=== PATIENT | female | born 1960 | race Hispanic/Latino ===

== ENCOUNTER 2019-05-03 17:09 | Inpatient (IN) | payer OTHER ==
--- NOTE | 2019-05-03 17:20 | Emergency Department Report ---
ED Chest Pain HPI - General Stated Complaint: STEMI Time Seen by Provider: 05/03/19 17:17 Source: patient, EMS - History of Present Illness Initial Comments: Patient is 58-year-old female with history of hypertension and diabetes. Patient brought to the emergency room from home for evaluation of chest pain. Patient stated that chest pain started 5 days ago. Patient described her pain as left sided pressure with radiation to the left arm. Patient stated the pain get worse today and asked why he went ahead and called 911. Patient described her pain as 9 out of 10 when EMS arrived. EMS gave a patient with nitroglycerin sublingual and then patient went into cardiac arrest, rhythm showed torsade de point and patient received a 200 J by EMS and is started on CPR for a brief seconds when patient started shouting. Upon arrival to the ER I reviewed the EKG which showed ST elevation in lead I but no other elevation in any other leads. Patient does have significant ST depression in inferior leads. Patient put on nuclear monitoring technician, given aspirin. MD Complaint: chest pain -: days(s) (5) Onset: during rest Pain Location: left chest Pain Radiation: none Severity: severe Severity scale (0 -10): 9 Quality: tightness, heaviness Consistency: intermittent - Related Data Home Medications Medication Instructions Recorded Confirmed Last Taken Diclofenac 1% [Diclofenac 1% 1 applic TP Q4H PRN 05/04/19 05/04/19 3 Weeks Ago topical gel] ~04/13/19 Levothyroxine [Synthroid] 125 mcg PO QAM 05/04/19 05/04/19 1 Week Ago ~04/27/19 Metformin HCl [metFORMIN] 1,000 mg PO BID 05/04/19 05/04/19 1 Day Ago ~05/03/19 Omeprazole 20 mg PO DAILY 05/04/19 05/04/19 1 Day Ago ~05/03/19 diphenhydrAMINE [Benadryl CAP] 50 mg PO QHS PRN 05/04/19 05/04/19 05/04/19 traZODone [Desyrel] 50 mg PO PRN 05/04/19 05/04/19 1 Month Ago ~04/03/19 Allergies Allergy/AdvReac Type Severity Reaction Status Date / Time No Known Allergies Allergy Unverified 05/03/19 17:31 Heart Score - HEART Score History: Highly suspicious EKG: Significant ST-depression Age: 45-65 Risk factors: 1-2 risk factors Troponin: < normal limit HEART Score: 6 - Critical Actions Critical Actions: 4-6 pts:12-16.6% risk of adverse cardiac event. Should be admitted ED Review of Systems ROS: Stated complaint: STEMI Other details as noted in HPI Comment: All other systems reviewed and negative Constitutional: denies: chills, fever Respiratory: denies: cough, shortness of breath, SOB with exertion Cardiovascular: chest pain Gastrointestinal: denies: abdominal pain, nausea, vomiting, diarrhea, constipation, hematemesis, melena, hematochezia Musculoskeletal: denies: back pain Neurological: denies: headache, weakness, numbness, paresthesias, confusion, abnormal gait ED Past Medical Hx - Medications Home Medications: Home Medications Medication Instructions Recorded Confirmed Last Taken Type Diclofenac 1% [Diclofenac 1% 1 applic TP Q4H PRN 05/04/19 05/04/19 3 Weeks Ago History topical gel] ~04/13/19 Levothyroxine [Synthroid] 125 mcg PO QAM 05/04/19 05/04/19 1 Week Ago History ~04/27/19 Metformin HCl [metFORMIN] 1,000 mg PO BID 05/04/19 05/04/19 1 Day Ago History ~05/03/19 Omeprazole 20 mg PO DAILY 05/04/19 05/04/19 1 Day Ago History ~05/03/19 diphenhydrAMINE [Benadryl CAP] 50 mg PO QHS PRN 05/04/19 05/04/19 05/04/19 History traZODone [Desyrel] 50 mg PO PRN 05/04/19 05/04/19 1 Month Ago History ~04/03/19 ED Physical Exam - General General appearance: alert, in no apparent distress - Head Head exam: Present: atraumatic, normal inspection - Eye Eye exam: Present: normal appearance - ENT ENT exam: Present: normal exam, normal orophraynx, mucous membranes moist - Neck Neck exam: Present: normal inspection, full ROM. Absent: tenderness, meni ngismus, lymphadenopathy, thyromegaly - Respiratory Respiratory exam: Present: normal lung sounds bilaterally - Cardiovascular Cardiovascular Exam: Present: regular rate, normal rhythm, normal heart sounds - GI/Abdominal GI/Abdominal exam: Present: soft, normal bowel sounds. Absent: distended, tenderness, guarding, rebound, rigid, organomegaly, mass, bruit, pulsatile mass, hernia - Extremities Exam Extremities exam: Present: normal inspection, full ROM, normal capillary refill. Absent: pedal edema, calf tenderness - Back Exam Back exam: Present: normal inspection, full ROM. Absent: CVA tenderness (R), CVA tenderness (L), muscle spasm, paraspinal tenderness, vertebral tenderness - Neurological Exam Neurological exam: Present: alert, oriented X3, CN II-XII intact - Skin Skin exam: Present: warm, intact, normal color ED Course Vital Signs 05/03/19 05/03/19 05/03/19 17:20 17:45 20:08 Temperature Pulse Rate 88 87 72 Respiratory 18 18 11 L Rate Respiratory Rate [Chest] Blood Pressure 178/88 Blood Pressure 169/80 [Left] O2 Sat by Pulse 95 92 Oximetry 05/03/19 05/03/19 05/03/19 20:10 20:15 20:20 Temperature 97.5 F L Pulse Rate 74 74 79 Respiratory 17 12 8 L Rate Respiratory Rate [Chest] Blood Pressure 175/113 175/113 Blood Pressure [Left] O2 Sat by Pulse 98 98 97 Oximetry 05/03/19 05/03/19 05/03/19 20:22 20:30 20:40 Temperature 97.7 F Pulse Rate 80 84 Respiratory 11 L 14 Rate Respiratory Rate [Chest] Blood Pressure 175/101 175/101 Blood Pressure [Left] O2 Sat by Pulse 95 95 Oximetry 05/03/19 05/03/19 05/03/19 20:50 21:00 21:10 Temperature Pulse Rate 80 84 87 Respiratory 14 14 14 Rate Respiratory Rate [Chest] Blood Pressure 170/98 166/99 166/99 Blood Pressure [Left] O2 Sat by Pulse 93 92 95 Oximetry 05/03/19 05/03/19 05/03/19 21:20 21:30 21:40 Temperature Pulse Rate 89 88 89 Respiratory 13 19 17 Rate Respiratory Rate [Chest] Blood Pressure 150/90 140/88 140/88 Blood Pressure [Left] O2 Sat by Pulse 94 90 95 Oximetry 05/03/19 05/03/19 05/03/19 21:50 22:00 22:10 Temperature Pulse Rate 92 H 85 96 H Respiratory 18 17 18 Rate Respiratory Rate [Chest] Blood Pressure 154/88 141/88 141/88 Blood Pressure [Left] O2 Sat by Pulse 93 90 93 Oximetry 05/03/19 05/03/19 05/03/19 22:19 22:20 22:25 Temperature Pulse Rate 92 H 93 H Respiratory 16 18 Rate Respiratory Rate [Chest] Blood Pressure 147/86 147/86 Blood Pressure [Left] O2 Sat by Pulse 95 Oximetry 05/03/19 05/03/19 05/03/19 22:30 22:39 22:40 Temperature Pulse Rate 93 H 89 Respiratory 15 17 Rate Respiratory 17 Rate [Chest] Blood Pressure 159/91 159/91 Blood Pressure [Left] O2 Sat by Pulse 92 93 Oximetry 05/03/19 05/03/19 05/03/19 22:50 22:57 23:00 Temperature Pulse Rate 88 82 Respiratory 16 17 17 Rate Respiratory Rate [Chest] Blood Pressure 135/84 136/83 Blood Pressure [Left] O2 Sat by Pulse 93 93 91 Oximetry 05/03/19 05/03/19 05/03/19 23:08 23:10 23:20 Temperature Pulse Rate 83 85 89 Respiratory 19 15 19 Rate Respiratory Rate [Chest] Blood Pressure 136/83 136/83 139/86 Blood Pressure [Left] O2 Sat by Pulse 91 94 95 Oximetry 05/03/19 05/03/19 05/03/19 23:30 23:40 23:50 Temperature Pulse Rate 84 81 79 Respiratory 16 15 16 Rate Respiratory Rate [Chest] Blood Pressure 132/86 132/86 139/85 Blood Pressure [Left] O2 Sat by Pulse 89 93 94 Oximetry 05/04/19 05/04/19 05/04/19 00:00 00:10 00:20 Temperature 97.6 F Pulse Rate 77 72 71 Respiratory 14 17 17 Rate Respiratory Rate [Chest] Blood Pressure 148/87 148/87 151/87 Blood Pressure [Left] O2 Sat by Pulse 93 96 95 Oximetry 05/04/19 05/04/19 05/04/19 00:30 00:40 00:50 Temperature Pulse Rate 75 73 69 Respiratory 21 16 17 Rate Respiratory Rate [Chest] Blood Pressure 152/76 152/76 152/76 Blood Pressure [Left] O2 Sat by Pulse 89 97 96 Oximetry 05/04/19 05/04/19 05/04/19 01:00 01:10 01:20 Temperature Pulse Rate 68 68 68 Respiratory 15 16 17 Rate Respiratory Rate [Chest] Blood Pressure 156/97 156/97 156/97 Blood Pressure [Left] O2 Sat by Pulse 94 95 96 Oximetry 05/04/19 05/04/19 05/04/19 01:30 01:40 01:41 Temperature Pulse Rate 68 69 77 Respiratory 17 14 Rate Respiratory Rate [Chest] Blood Pressure 159/90 159/90 Blood Pressure [Left] O2 Sat by Pulse 94 95 Oximetry 05/04/19 05/04/19 05/04/19 01:50 02:00 02:10 Temperature Pulse Rate 67 66 69 Respiratory 15 16 18 Rate Respiratory Rate [Chest] Blood Pressure 159/90 151/92 151/92 Blood Pressure [Left] O2 Sat by Pulse 95 95 95 Oximetry 05/04/19 05/04/19 05/04/19 02:20 02:30 02:40 Temperature Pulse Rate 70 70 69 Respiratory 18 18 19 Rate Respiratory Rate [Chest] Blood Pressure 151/92 154/87 154/87 Blood Pressure [Left] O2 Sat by Pulse 95 94 96 Oximetry 05/04/19 05/04/19 05/04/19 02:50 03:00 03:10 Temperature Pulse Rate 69 64 68 Respiratory 15 16 14 Rate Respiratory Rate [Chest] Blood Pressure 154/87 160/87 160/87 Blood Pressure [Left] O2 Sat by Pulse 96 96 97 Oximetry 05/04/19 05/04/19 05/04/19 03:20 03:30 03:40 Temperature Pulse Rate 88 78 64 Respiratory 12 19 16 Rate Respiratory Rate [Chest] Blood Pressure 160/87 147/80 147/80 Blood Pressure [Left] O2 Sat by Pulse 97 88 94 Oximetry 05/04/19 05/04/19 05/04/19 03:49 03:50 04:00 Temperature 98.1 F Pulse Rate 63 63 Respiratory 15 15 Rate Respiratory Rate [Chest] Blood Pressure 147/80 149/78 Blood Pressure [Left] O2 Sat by Pulse 95 94 Oximetry 05/04/19 05/04/19 05/04/19 04:10 04:20 04:30 Temperature Pulse Rate 63 65 71 Respiratory 15 16 17 Rate Respiratory Rate [Chest] Blood Pressure 149/78 149/78 164/84 Blood Pressure [Left] O2 Sat by Pulse 95 95 94 Oximetry 02/24/20 02/24/20 02/24/20 04:40 04:50 05:00 Temperature Pulse Rate 74 66 70 Respiratory 20 16 21 Rate Respiratory Rate [Chest] Blood Pressure 164/84 164/84 162/100 Blood Pressure [Left] O2 Sat by Pulse 96 96 95 Oximetry 05/04/19 05/04/19 05/04/19 05:10 05:20 05:30 Temperature Pulse Rate 77 66 66 Respiratory 16 15 18 Rate Respiratory Rate [Chest] Blood Pressure 162/100 162/100 158/80 Blood Pressure [Left] O2 Sat by Pulse 97 95 92 Oximetry 05/04/19 05/04/19 05/04/19 05:40 05:50 06:00 Temperature Pulse Rate 71 66 67 Respiratory 17 21 20 Rate Respiratory Rate [Chest] Blood Pressure 158/80 158/80 161/81 Blood Pressure [Left] O2 Sat by Pulse 94 95 92 Oximetry 05/04/19 05/04/19 06:10 06:20 Temperature Pulse Rate 70 73 Respiratory 20 9 L Rate Respiratory Rate [Chest] Blood Pressure 161/81 161/81 Blood Pressure [Left] O2 Sat by Pulse 95 95 Oximetry - Reevaluation(s) Reevaluation #1: 05/03/19 17:34 EKG in the ER showed STEMI. STEMI protocol activated. I discussed the patient with Dr. Hsu, he stated that he is on his way to the cardiac cath. He advised to start patient on heparin and nitroglycerin drip. ED Medical Decision Making - Lab Data Result diagrams: 05/04/19 04:27 05/04/19 04:27 - EKG Data -: EKG Interpreted by Me EKG shows normal: sinus rhythm - EKG Data 05/03/19 17:50 STEMI Critical Care Time: Yes Critical care time in (mins) excluding proc time.: 30 Critical care attestation.: If time is entered above; I have spent that time in minutes in the direct care of this critically ill patient, excluding procedure time. ED Disposition Clinical Impression: STEMI (ST elevation myocardial infarction) Disposition: -09 OP ADMIT IP TO THIS HOSP Is pt being admited?: Yes Condition: Stable
[2019-05-03] MEDS ORDERED: ONDANSETRON 4 MG/2 ML INJ ONE ×2 (17:29→19:44)
[2019-05-03] MEDS ORDERED: ONDANSETRON 4 MG/2 ML INJ IV ONE (17:31)
[2019-05-03] MEDS ORDERED: HEPARIN 10,000 UNITS/10 ML VIAL IV ONE (17:31)
[2019-05-03] MEDS: ASPIRIN 81 MG TAB CHEW PO ONE ×2 (17:33→17:43)
[2019-05-03 17:37] LABS: Basophils # (Auto) 0.1 K/mm3 (0.0-0.1); Basophils % (Auto) 0.9 % (0.0-1.8); Eosinophils # (Auto) 0.3 K/mm3 (0.0-0.4); Eosinophils % (Auto) 2.8 % (0.0-4.3); Hematocrit 51.3 % (30.3-42.9); Hemoglobin 17.3 gm/dl (10.1-14.3); Lymphocytes # (Auto) 4.3 K/mm3 (1.2-5.4); Lymphocytes % (Auto) 37.7 % (13.4-35.0); Mean Corpuscular HGB Conc 34 % (30-34); Mean Corpuscular Volume 94 fl (79-97); Monocytes # (Auto) 0.7 K/mm3 (0.0-0.8); Monocytes % (Auto) 6.5 % (0.0-7.3); Platelet Count 241 K/mm3 (140-440); Red Blood Count 5.48 M/mm3 (3.65-5.03); Red Cell Distribution Width 14.4 % (13.2-15.2)
[2019-05-03] MEDS: NITROGLYCERIN DRIP 50 MG/250 ML BOTTLE IV SCH ×2 (17:43→18:31)
[2019-05-03] MEDS: HEPARIN/ 0.45% NACL DRIP 25,000 UNIT/500 ML BAG IV SCH (17:48)
[2019-05-03 17:51] LABS: INR 0.92 (0.87-1.13)
[2019-05-03 17:52] LABS: Partial Thromboplastin Time 26.4 Sec. (24.2-36.6)
[2019-05-03 17:58] LABS: BUN/Creatinine Ratio 10; Blood Urea Nitrogen 6 mg/dL (7-17); Hemolysis Index 6
[2019-05-03 18:00] LABS: Alanine Aminotransferase 31 units/L (7-56); Albumin 4.4 g/dL (3.9-5); Bilirubin,Direct < 0.2 mg/dL (0-0.2)
[2019-05-03] MEDS ORDERED: HEPARIN/NS 5000 UNIT/500ML 1,000 ML IR ONE (18:03)
[2019-05-03] MEDS ORDERED: fentaNYL 100 MCG/2 ML INJ ONE (18:04)
[2019-05-03] MEDS ORDERED: MIDAZOLAM 2 MG/2 ML INJ ONE (18:04)
[2019-05-03] MEDS ORDERED: LIDOCAINE (2%) 20 MG/1 ML VIAL 20 ML MDV INFILTRATI ONE (18:04)
[2019-05-03] MEDS ORDERED: NITROGLYCERIN SYRINGE 0 ML ONE (18:04)
[2019-05-03] MEDS ORDERED: VERAPAMIL 5 MG/2 ML INJ ONE (18:04)
[2019-05-03] MEDS ORDERED: SODIUM CHLORIDE 0.9% 500 ML 500 ML ONE (18:05)
--- NOTE | 2019-05-03 18:12 | XRay Report ---
CHEST 1 VIEW INDICATION: Chest Pain. COMPARISON: none FINDINGS: SUPPORT DEVICES: None. HEART / MEDIASTINUM: No significant abnormality. LUNGS / PLEURA: No significant pulmonary or pleural abnormality. No pneumothorax. ADDITIONAL FINDINGS: IMPRESSION: 1. No acute cardiopulmonary disease Signer Name: Bayron Peterson MD Signed: 05/03/2019 6:08 PM Workstation Name: [id number]
[2019-05-03] MEDS: HEPARIN 10,000 UNITS/10 ML VIAL ONE ×3 (18:26→19:55)
[2019-05-03] MEDS ORDERED: HEPARIN/NS 5000 UNIT/500ML 500 ML IR ONE (18:36)
[2019-05-03] MEDS ORDERED: oxyCODONE /ACETAMINOPHEN 5-325MG TAB PO PRN (19:05)
[2019-05-03] MEDS ORDERED: ACETAMINOPHEN 325 MG TAB PO PRN (19:05)
[2019-05-03] MEDS ORDERED: MORPHINE 4 MG/1 ML INJ IV PRN (19:05)
[2019-05-03] MEDS: ONDANSETRON 4 MG/2 ML INJ IV PRN ×2 (19:08→22:51)
[2019-05-03] MEDS ORDERED: SODIUM CHLORIDE 0.9% 1000 ML 1,000 ML IV SCH (19:15)
[2019-05-03] MEDS ORDERED: TICAGRELOR 90 MG TAB ONE (19:31)
[2019-05-03] MEDS: ALUM-MAG HYDROXIDE-SIMETHICONE 200-200-20MG/5ML ORAL LIQD 30 ML ONE ×2 (19:50→19:55)
[2019-05-03] MEDS ORDERED: HEPARIN 10,000 UNITS/10 ML VIAL ONE (19:55)
[2019-05-03] MEDS ORDERED: HYDROcodone/ACETAMINOPHEN 5-325 MG TAB PO PRN (19:58)
[2019-05-03] MEDS ORDERED: ONDANSETRON 4 MG/2 ML INJ IV PRN (19:58)
[2019-05-03] MEDS ORDERED: HYDROmorphone 1 MG/1 ML INJ IV PRN (19:58)
--- NOTE | 2019-05-03 20:10 | History and Physical Report ---
<JONATHAN KUNZ - Last Filed: 05/03/19 22:14> History of Present Illness Date of examination: 05/03/19 Date of admission: 05/03/19 19:05 Chief complaint: Chest pain History of present illness: Patient is a 58-year-old female with history of diabetes, hypertension GERD and hypothyroidism who presents to ER with complaints for of dizziness, nausea and chest pain x 5 days. Patient states that her left chest pain pain is 8/10, intermittent initially but became become constant, sharp, crushing in nature, worsened with exertion, radiated to the right chest today and was accompanied by dizziness, nausea and sweats. EMS notified and upon arrival the patient was found to be in distress, given sublingual nitroglycerin . Report stated that patient went into cardiac arrest, with a rhythm showing torsade de point and received a 200 J by EMS and CPR initaiated in field until patient started shouting. On arrival, EKG changes consistent with STEMI. A code STEMI was called, Cardiology cath team activated and cardiology team consulted in ED. Patient admitted to ICU for medical stabilization due to high risk for cardiac decompensation. Patient taken urgently to [facility] for intervention as per cardiology team. Past History Past Medical History: other (as noted in HPI) Past Surgical History: hysterectomy Social history: smoking (x19 years ) Family history: CAD, diabetes, hypertension Medications and Allergies Allergies Allergy/AdvReac Type Severity Reaction Status Date / Time No Known Allergies Allergy Unverified 05/03/19 17:31 Active Meds: Active Medications Acetaminophen (Tylenol) 650 mg PO Q4H PRN PRN Reason: Pain MILD(1-3)/Fever >100.5/HANNON Famotidine (Pepcid) 20 mg IV BID [facility]UEL Heparin Sodium/Sodium Chloride (Heparin/ 0.45% Nacl-25,000 Unit/500 Ml) 25,000 unit in 500 mls @ 20 mls/hr IV TITRATE MANUEL; Protocol Last Admin: 05/03/19 17:48 Dose: 1,000 units/hr, 20 mls/hr Documented by: Nitroglycerin/Dextrose (Tridil Drip 50mg/250ml) 50 mg in 250 mls @ 3 mls/hr IV TITR MANUEL; Protocol Last Admin: 05/03/19 18:31 Dose: 10 mcg/min, 3 mls/hr Documented by: Sodium Chloride (Nacl 0.9% 1000 Ml) 1,000 mls @ 42 mls/hr IV DIRECT [facility] Morphine Sulfate (Morphine) 4 mg IV Q4H PRN PRN Reason: Pain , Severe (7-10) Ondansetron HCl (Zofran) 4 mg IV Q8H PRN PRN Reason: Nausea And Vomiting Last Admin: 05/03/19 19:08 Dose: 4 mg Documented by: Oxycodone/Acetaminophen (Percocet 5/325) 1 tab PO Q6H PRN PRN Reason: Pain, Moderate (4-6) Sodium Chloride (Sodium Chloride Flush Syringe 10 Ml) 10 ml IV BID MANUEL Sodium Chloride (Sodium Chloride Flush Syringe 10 Ml) 10 ml IV PRN PRN PRN Reason: LINE FLUSH Review of Systems All systems: negative Cardiovascular: chest pain Exam - Physical Exam Narrative exam: - Physical Exam Narrative exam: General appearance: Present: No distress noted - EENT Eyes: Present: PERRL ENT: hearing intact, clear oral mucosa - Neck Neck: Present: supple, normal ROM - Respiratory Respiratory effort: normal Respiratory: bilateral: Clear to auscultation - Cardiovascular Heart Sounds: Present: S1 & S2. Absent: rub, click - Extremities Extremities: pulses symmetrical, No edema Peripheral Pulses: within normal limits - Abdominal General gastrointestinal: Present: , non-distended, normal bowel sounds genitourinary: Present: normal - Integumentary Integumentary: Present: clear, warm, dry - Musculoskeletal Musculoskeletal: gait normal, strength equal bilaterally - Psychiatric Psychiatric: appropriate mood/affect, intact judgment & insight - Neurologic Neurologic: CNII-XII intact, moves all extremities - Constitutional Vitals: Temp Pulse Resp BP Pulse Ox 87 18 169/80 92 05/03/19 17:45 05/03/19 17:45 05/03/19 17:45 05/03/19 17:45 Results - Labs CBC & Chem 7: 05/03/19 17:23 05/03/19 17:23 Labs: Laboratory Last Values WBC 11.5 K/mm3 (4.5-11.0) H 05/03/19 17:23 RBC 5.48 M/mm3 (3.65-5.03) H 05/03/19 17:23 Hgb 17.3 gm/dl (10.1-14.3) H 05/03/19 17:23 Hct 51.3 % (30.3-42.9) H 05/03/19 17:23 MCV 94 fl (79-97) 05/03/19 17: MCH 32 pg (28-32) 05/03/19 17:23 MCHC 34 % (30-34) 05/03/19 17:23 RDW 14.4 % (13.2-15.2) 05/03/19 17: Plt Count 241 K/mm3 (140-440) 05/03/19 17:23 Lymph % (Auto) 37.7 % (13.4-35.0) H 05/03/19 17:23 Craig % (Auto) 6.5 % (0.0-7.3) 05/03/19 17: Eos % (Auto) 2.8 % (0.0-4.3) 05/03/19 17: Baso % (Auto) 0.9 % (0.0-1.8) 05/03/19 17: Lymph # 4.3 K/mm3 (1.2-5.4) 05/03/19 17: Craig # 0.7 K/mm3 (0.0-0.8) 05/03/19 17: Eos # 0.3 K/mm3 (0.0-0.4) 05/03/19 17: Baso # 0.1 K/mm3 (0.0-0.1) 05/03/19 17: Seg Neutrophils % 52.1 % (40.0-70.0) 05/03/19 17: Seg Neutrophils # 6.0 K/mm3 (1.8-7.7) 05/03/19 17:23 PT 12.5 Sec. (12.2-14.9) 05/03/19 17:23 INR 0.92 (0.87-1.13) 05/03/19 17:23 APTT 26.4 Sec. (24.2-36.6) 05/03/19 17:23 Sodium 131 mmol/L (137-145) L 05/03/19 17:23 Potassium 3.4 mmol/L (3.6-5.0) L 05/03/19 17: Chloride 91.4 mmol/L (98-107) L 05/03/19 17:23 Carbon Dioxide 17 mmol/L (22-30) L 05/03/19 17:23 Anion Gap 26 mmol/L 05/03/19 17:23 BUN 6 mg/dL (7-17) L 05/03/19 17:23 Creatinine 0.6 mg/dL (0.7-1.2) L 05/03/19 17:23 Estimated GFR > 60 ml/min 05/03/19 17:23 BUN/Creatinine Ratio 10 % 05/03/19 17:23 Glucose 170 mg/dL (65-100) H 05/03/19 17:23 Calcium 10.0 mg/dL (8.4-10.2) 05/03/19 17:23 Magnesium 2.10 mg/dL (1.7-2.3) 05/03/19 17:23 Total Bilirubin 0.30 mg/dL (0.1-1.2) 05/03/19 17:23 Direct Bilirubin < 0.2 mg/dL (0-0.2) 05/03/19 17:23 Indirect Bilirubin 0.1 mg/dL 05/03/19 17:23 AST 27 units/L (5-40) 05/03/19 17:23 ALT 31 units/L (7-56) 05/03/19 17:23 Alkaline Phosphatase 74 units/L (35-129) 05/03/19 17:23 Troponin T < 0.010 ng/mL (0.00-0.029) 05/03/19 17:23 Total Protein 7.9 g/dL (6.3-8.2) 05/03/19 17:23 Albumin 4.4 g/dL (3.9-5) 05/03/19 17:23 Albumin/Globulin Ratio 1.3 % 05/03/19 17:23 Lipase 27 units/L (13-60) 05/03/19 17:23 - Imaging and Cardiology EKG: report reviewed Chest x-ray: report reviewed (CHEST 1 VIEW INDICATION: Chest Pain. COMPARISON: none FINDINGS: SUPPORT DEVICES: None. HEART / MEDIASTINUM: No significant abnormality. LUNGS / PLEURA: No significant pulmonary or pleural abnormality. No pneumothorax. ADDITIONAL FINDINGS: IMPRESSION: 1. No acute cardiopulmonary disease ) Assessment and Plan Assessment and plan: N-STEMI -will admit to CCU -monitor with serial CE and EKG -as needed SL NTG and pain control -Monitor BP, add betablocker and ACEI if BP tolerates -Cardiology consulted for interventional assessment Obesity -BMI 36.6 -Balanced diet -increase physical activity at discharge -lipid panel Hypertension -Home meds once reconciled -Monitor BP q shift Hyponatremia -mild, Na on admission 131 -Slowly correct Na with IVF -Continue to monitor replete prn Hypokalemia -Mild , -Potassium on admission 3.4 -Likely secondary to vomiting -Follow-up on repeat potassium labs -Continue to monitor DM -POC BG monitoring -SSI coverage prn DVT prophylaxis -SCD to bilateral lower extremities while in bed - therapeutic anticoagulation as per cardiology team. Advance Directives: No VTE prophylaxis?: Mechanical Reason for no VTE Prophylaxis: Surgical contraindication Plan of care discussed with patient/family: Yes <GRAY ENCINAS - Last Filed: 05/05/19 20:00> History of Present Illness Date of admission: 05/03/19 19:05 Medications and Allergies Active Meds: Active Medications Acetaminophen (Tylenol) 650 mg PO Q4H PRN PRN Reason: Pain MILD(1-3)/Fever >100.5/HANNON Acetaminophen/Hydrocodone Bitart ([place] 5/325) 1 each PO Q6H PRN PRN Reason: Pain, Moderate (4-6) Last Admin: 05/05/19 16:23 Dose: 1 each Documented by: Aspirin (Baby Aspirin) 81 mg PO QDAY [facility] Last Admin: 05/05/19 12:31 Dose: Not Given Documented by: Atorvastatin Calcium (Lipitor) 80 mg PO QHS [facility] Last Admin: 05/04/19 21:25 Dose: 80 mg Documented by: Diphenhydramine HCl (Benadryl) 25 mg PO QHS PRN PRN Reason: Sleep Last Admin: 05/04/19 21:24 Dose: 25 mg Documented by: Famotidine (Pepcid) 20 mg PO BID [facility] Last Admin: 05/05/19 14:23 Dose: 20 mg Documented by: Hydromorphone HCl (Dilaudid) 0.5 mg IV Q3H PRN PRN Reason: Pain , Severe (7-10) Last Admin: 05/03/19 22:25 Dose: 0.5 mg Documented by: Sodium Chloride (Nacl 0.9% 1000 Ml) 1,000 mls @ 75 mls/hr IV DIRECT [facility] Last Admin: 05/05/19 17:02 Dose: 75 mls/hr Documented by: Losartan Potassium (Cozaar) 25 mg PO QDAY [facility] Last Admin: 05/05/19 12:32 Dose: Not Given Documented by: Metoclopramide HCl (Reglan) 10 mg IV Q6H PRN PRN Reason: Nausea And Vomiting Last Admin: 05/05/19 19:47 Dose: 10 mg Documented by: Metoprolol Tartrate (Metoprolol) 50 mg PO BID [facility] Last Admin: 05/05/19 14:23 Dose: 50 mg Documented by: Ondansetron HCl (Zofran) 4 mg IV Q4H PRN PRN Reason: Nausea And Vomiting Last Admin: 05/05/19 11:03 Dose: 4 mg Documented by: Oxycodone/Acetaminophen (Percocet 5/325) 1 tab PO Q6H PRN PRN Reason: Pain, Moderate (4-6) Sodium Chloride (Sodium Chloride Flush Syringe 10 Ml) 10 ml IV BID [facility] Last Admin: 05/05/19 08:00 Dose: 10 ml Documented by: Sodium Chloride (Sodium Chloride Flush Syringe 10 Ml) 10 ml IV PRN PRN PRN Reason: LINE FLUSH Ticagrelor (Brilinta) 90 mg PO BID [facility] Last Admin: 05/05/19 12:32 Dose: Not Given Documented by: Tramadol HCl (Ultram) 50 mg PO Q4H PRN PRN Reason: Pain, Mild (1-3) Last Admin: 05/05/19 14:24 Dose: 50 mg Documented by: Exam - Constitutional Vitals: Temp Pulse Resp BP Pulse Ox 98.3 F 60 14 134/71 97 05/05/19 19:34 05/05/19 19:00 05/05/19 19:00 05/05/19 19:00 05/05/19 19:00 Results - Labs CBC & Chem 7: 05/05/19 03:58 05/05/19 03:58 Labs: Laboratory Last Values WBC 13.6 K/mm3 (4.5-11.0) H 05/05/19 03:58 RBC 4.55 M/mm3 (3.65-5.03) 05/05/19 03:58 Hgb 14.5 gm/dl (10.1-14.3) H 05/05/19 03:58 Hct 42.7 % (30.3-42.9) 05/05/19 03:58 MCV 94 fl (79-97) 05/05/19 03:58 MCH 32 pg (28-32) 05/05/19 03:58 MCHC 34 % (30-34) 05/05/19 03:58 RDW 15.0 % (13.2-15.2) 05/05/19 03:58 Plt Count 198 K/mm3 (140-440) 05/05/19 03:58 Lymph % (Auto) 30.7 % (13.4-35.0) 05/05/19 03:58 Craig % (Auto) 8.0 % (0.0-7.3) H 05/05/19 03:58 Eos % (Auto) 0.6 % (0.0-4.3) 05/05/19 03:58 Baso % (Auto) 0.5 % (0.0-1.8) 05/05/19 03:58 Lymph # 4.2 K/mm3 (1.2-5.4) 05/05/19 03:58 Craig # 1.1 K/mm3 (0.0-0.8) H 05/05/19 03:58 Eos # 0.1 K/mm3 (0.0-0.4) 05/05/19 03:58 Baso # 0.1 K/mm3 (0.0-0.1) 05/05/19 03:58 Seg Neutrophils % 60.2 % (40.0-70.0) 05/05/19 03:58 Seg Neutrophils # 8.2 K/mm3 (1.8-7.7) H 05/05/19 03:58 PT 13.4 Sec. (12.2-14.9) 05/05/19 03:58 INR 1.01 (0.87-1.13) 05/05/19 03:58 APTT 26.4 Sec. (24.2-36.6) 05/03/19 17:23 Activated Clotting Time 263 (74-137) H 05/05/19 10:46 Heparin Anti-Xa Level 0.28 U.I./ml (0.3-0.7) L 05/05/19 00:32 Sodium 140 mmol/L (137-145) 05/05/19 03:58 Potassium 3.7 mmol/L (3.6-5.0) 05/05/19 03:58 Chloride 102.2 mmol/L (98-107) 05/05/19 03:58 Carbon Dioxide 25 mmol/L (22-30) 05/05/19 03:58 Anion Gap 17 mmol/L 05/05/19 03:58 BUN 4 mg/dL (7-17) L 05/05/19 03:58 Creatinine 0.5 mg/dL (0.7-1.2) L 05/05/19 03:58 Estimated GFR > 60 ml/min 05/05/19 03:58 BUN/Creatinine Ratio 8 % 05/05/19 03:58 Glucose 115 mg/dL (65-100) H 05/05/19 03:58 POC Glucose 147 (70-105) H 05/05/19 17:52 Calcium 9.1 mg/dL (8.4-10.2) 05/05/19 03:58 Magnesium 2.10 mg/dL (1.7-2.3) 05/03/19 17:23 Total Bilirubin 0.30 mg/dL (0.1-1.2) 05/03/19 17:23 Direct Bilirubin < 0.2 mg/dL (0-0.2) 05/03/19 17:23 Indirect Bilirubin 0.1 mg/dL 05/03/19 17:23 AST 27 units/L (5-40) 05/03/19 17:23 ALT 31 units/L (7-56) 05/03/19 17:23 Alkaline Phosphatase 74 units/L (35-129) 05/03/19 17:23 Total Creatine Kinase 3035 units/L (30-135) H 05/04/19 04:27 CK-MB (CK-2) 308.9 ng/mL (0.0-4.0) H 05/04/19 04:27 CK-MB (CK-2) Rel Index 10.1 (0-4) H 05/04/19 04:27 Troponin T 3.710 ng/mL (0.00-0.029) H* 05/04/19 11:44 Total Protein 7.9 g/dL (6.3-8.2) 05/03/19 17:23 Albumin 4.4 g/dL (3.9-5) 05/03/19 17:23 Albumin/Globulin Ratio 1.3 % 05/03/19 17:23 Triglycerides 76 mg/dL (2-149) 05/03/19 21:36 Cholesterol 294 mg/dL (50-199) H 05/03/19 21:36 LDL Cholesterol Direct 223 mg/dL (50-130) H 05/03/19 21:36 HDL Cholesterol 58 mg/dL (40-59) 05/03/19 21:36 Cholesterol/HDL Ratio 5.06 % 05/03/19 21:36 Lipase 27 units/L (13-60) 05/03/19 17:23 Urine Color Yellow (Yellow) 05/04/19 11:13 Urine Turbidity Clear (Clear) 05/04/19 11:13 Urine pH 6.0 (5.0-7.0) 05/04/19 11:13 Ur Specific Bowlegs 1.009 (1.003-1.030) 05/04/19 11:13 Urine Protein <15 mg/dl mg/dL (Negative) 05/04/19 11:13 Urine Glucose (UA) Neg mg/dL (Negative) 05/04/19 11:13 Urine Ketones Neg mg/dL (Negative) 05/04/19 11:13 Urine Blood Neg (Negative) 05/04/19 11:13 Urine Nitrite Neg (Negative) 05/04/19 11:13 Urine Bilirubin Neg (Negative) 05/04/19 11:13 Urine Urobilinogen < 2.0 mg/dL (<2.0) 05/04/19 11:13 Ur Leukocyte Esterase Neg (Negative) 05/04/19 11:13 Urine WBC (Auto) < 1.0 /HPF (0.0-6.0) 05/04/19 11:13 Urine RBC (Auto) 1.0 /HPF (0.0-6.0) 05/04/19 11:13 U Epithel Cells (Auto) < 1.0 /HPF (0-13.0) 05/04/19 11:13 Urine Opiates Screen Presumptive negative 05/04/19 Unknown Urine Methadone Screen Presumptive negative 05/04/19 Unknown Ur Barbiturates Screen Presumptive negative 05/04/19 Unknown Ur Phencyclidine Scrn Presumptive negative 05/04/19 Unknown Ur Amphetamines Screen Presumptive negative 05/04/19 Unknown U Benzodiazepines Scrn Presumptive negative 05/04/19 Unknown Urine Cocaine Screen Presumptive negative 05/04/19 Unknown U Marijuana (THC) Screen Presumptive negative 05/04/19 Unknown Drugs of Abuse Note Disclamer 05/04/19 Unknown Assessment and Plan Assessment and plan: Cardiac cath report: Intervention of the 100% occluded obtuse marginal branch was performed with 3 drug-eluting stents was placed in the obtuse marginal branch with good results AZAM-3 flow was noted no complications of dissection. Final impression uncomplicated multiple drug stent implant in the first obtuse marginal for acute anterolateral myocardial infarction with good results the patient has residual 70% focal LAD lesion this will be evaluated for intervention. Drug-eluting stent 2.75 cm x 21 mm 100% occluded obtuse marginal branch.
--- NOTE | 2019-05-03 20:49 | Cardiac Catherization Report ---
INDICATION FOR PROCEDURE: The patient is a 58-year-old white female with history of diabetes mellitus for last 5-6 years, history of hypertension and chronic smoking for last 20 years, 1 pack per day, presented to the Emergency Room with complaints of chest pain of 5 days' duration, which got worse today and subsequently EKG showed ST elevations in 1 and aVL consistent with lateral infarct. Also, apparently had a transient torsade for which she was shocked. Subsequently, she was evaluated in the Emergency Room with persistent chest pain, was taken to the catheterization laboratory on an emergency basis as a part of the STEMI protocol. The patient denied any previous cardiac history and also she is not on any medical care for the last 2 years because of lack of insurance and she did not take medications. DESCRIPTION OF PROCEDURE: The patient was brought to the catheterization laboratory on an emergency basis after explaining the diagnosis and indication for emergency intervention. She understands and was taken to the catheterization laboratory. Apparently, the patient ate just prior to coming to the Emergency Room. The patient in the catheterization laboratory was prepared with sterile drapes as usual. Local anesthesia was given in the right wrist area. Right radial artery puncture was made using 21-gauge arterial puncture needle. Subsequently, 5-Bolivian slender sheath was introduced. The patient received 4000 units of intravenous heparin and also IV nitroglycerin because of elevated blood pressure and persistent chest pain. Initially EBU 6-Bolivian 3.5 guiding catheter was advanced and engaged the left coronary artery. Angiogram showed evidence of occluded obtuse marginal branch as the culprit lesion. In addition, there is a 70% focal mid LAD lesion on LCA injection. Because of her presentation is consistent with a lateral infarct and proximal obtuse marginal branch is occluded, intervention of this lesion was started. The patient has indwelling 6-Bolivian EBU 3.5 guiding catheter. Subsequently, received extra dose of IV heparin. A 0.014 inch [place] XT guidewire was advanced into the proximal marginal branch without much difficulty. This revealed evidence of a very severe proximal lesion in addition to mid and distal tight lesions. Lesion was dilated with 2.5 x 15 mm balloon, which resulted in AZAM 3 flow. Subsequently, distal obtuse marginal branch lesion, which is in the bifurcation area, was stented with a 2.5 x 12 mm Ronyx Medtronic drug-eluting stent. This resulted in shifting of the plaque to the distal area and required a second similar stent to be inserted with good result. Also, a very small distal branch was occluded from this procedure. There is a severe 80-90% mid obtuse marginal long lesion. This was stented with 2.75 x 15 mm Ronyx Medtronic drug-eluting stent up to 14 atmospheres with good result. This left the very proximal thrombotic lesion, which is severe. This lesion extended across a small caliber, but long branch of this vessel. Balloon angioplasty of this lesion was performed with preservation of the side branch. Hence, a 2.75 x 21 mm Ronyx stent was inserted with dilation up to 14 atmospheres with very good result. Final angiogram showed widely patent proximal, mid, and distal obtuse marginal branch with no obvious evidence of distal embolization or perforation. No evidence of dissection noted. AZAM 3 flow was noted post procedure and AZAM 0 flow was at the beginning of the procedure. After obtaining the successful result of the obtuse marginal branch, angiograms of the right coronary artery were obtained, which showed 30% smooth proximal lesion. This is a dominant vessel. Following this, left ventriculogram was performed in [place] and [place] projection using hand injection. This showed mild hypokinesis of the lateral wall. Overall because of hypercontractility of the rest of the ventricle. Overall, ejection fraction was felt to be around 50%. The patient's chest pain markedly improved. The patient has very frequent ventricular bigeminy, probably from reperfusion injury. However, the patient remained hemodynamically stable. Blood pressure was maintained with IV nitroglycerin. Rhythm has been sinus except for frequent ventricular ectopy, which was felt to be secondary to reperfusion injury. At the end of the procedure, ACT was checked and it was 257 seconds. Extra dose of 3000 units of IV heparin was given. The patient received 180 mg of Brilinta in the catheterization laboratory. At the end of the procedure, the patient's rhythm has been hemodynamically stable. The patient's chest pain is markedly improved. The patient was nauseated throughout the procedure requiring Zofran. The patient had a meal prior to coming to the hospital. The patient was evaluated for moderate sedation and because of recent ingestion of food, it was decided not to give her sedation at this point. The patient received Zofran in addition to local anesthesia. Following findings were noted. HEMODYNAMICS: 1. Opening aortic pressure 177/99. Left ventricular pressure 174/20. No gradient across the aortic valve. Estimated ejection fraction 50%. 2. Left ventriculogram done in [place] and [place] projection using hand injection showed mild to moderate hypokinesis of the lateral wall. Overall, ejection fraction was still preserved around 50%. Mitral regurgitation could not be evaluated because of limited amount of dye injected. 3. Right coronary artery dominant vessel arising normally from the right coronary cusp. Smooth 30% mid lesion noted. Otherwise, rest of the RCA without significant disease. 4. Left coronary artery arises normally from left coronary cusp. Left main without significant disease. LAD after giving rise to a fairly large diagonal branch shows focal 70% smooth lesion in the mid part except for this lesion in LAD, which is not reaching the apex did not show any other significant disease. Diagonal branch without significant disease. 5. Circumflex artery as mentioned above showed occluded first obtuse marginal branch; however, gave rise to a fairly large distal obtuse marginal branch without significant disease and also a branch in the AV groove, which showed mild disease. As mentioned above, intervention of the 100% occluded obtuse marginal branch was performed. Three drug-eluting stents Ronyx 2.75 x 21 mm proximally, 2.75 x 15 mm Ronyx stent in the mid part of the obtuse marginal branch and two 2.5 x 8 mm Ronyx stents inserted distally with very good result. AZAM 3 flow was noted at the end of the procedure. No complications of dissection or perforation or embolization noted. As mentioned above, the patient tolerated the procedure well. Chest is almost completely free of chest pain at the end of the procedure and hemodynamically stable. IMPRESSION: 1. Uncomplicated multiple drug stent implant in the first obtuse marginal for acute anterolateral myocardial infarction with good result. 2. The patient has residual 70% focal LAD lesion. This will be evaluated for intervention during this admission. Findings were explained to the patient and her family and her mother on the phone. JOB# [id number] DENISE/CHINTAN
[2019-05-03] MEDS ORDERED: NITROGLYCERIN DRIP 50 MG/250 ML BOTTLE IV ONE (21:00)
[2019-05-03] MEDS ORDERED: FAMOTIDINE 20 MG/2 ML INJ IV SCH (22:00)
[2019-05-03] MEDS: METOPROLOL TARTRATE 50 MG TAB PO SCH (22:19)
[2019-05-03] MEDS: SODIUM CHLORIDE 0.9% 1000 ML 1,000 ML IV SCH (22:36)
[2019-05-03 23:13] LABS: Chol/HDL Ratio 5.06 %
--- NOTE | 2019-05-04 02:31 | XRay Report ---
CHEST 1 VIEW INDICATION: post pci. COMPARISON: One day prior FINDINGS: Support devices: None. Heart: Normal. Lungs/Pleura: No acute pulmonary or pleural findings. IMPRESSION: 1. No acute findings. Signer Name: Tu Shields MD Signed: 05/04/2019 2:26 AM Workstation Name: [id number]
[2019-05-04] MEDS: ONDANSETRON 4 MG/2 ML INJ IV PRN ×2 (02:50→07:40)
[2019-05-04 05:27] LABS: Basophils # (Auto) 0.1 K/mm3 (0.0-0.1); Basophils % (Auto) 0.6 % (0.0-1.8); Eosinophils % (Auto) 0.1 % (0.0-4.3); Hematocrit 45.2 % (30.3-42.9); Hemoglobin 15.3 gm/dl (10.1-14.3); Lymphocytes # (Auto) 2.2 K/mm3 (1.2-5.4); Lymphocytes % (Auto) 14.5 % (13.4-35.0); Mean Corpuscular HGB Conc 34 % (30-34); Mean Corpuscular Volume 94 fl (79-97); Monocytes # (Auto) 0.9 K/mm3 (0.0-0.8); Monocytes % (Auto) 5.7 % (0.0-7.3); Platelet Count 225 K/mm3 (140-440); Red Blood Count 4.82 M/mm3 (3.65-5.03)
[2019-05-04 05:42] LABS: BUN/Creatinine Ratio 14; Blood Urea Nitrogen 7 mg/dL (7-17); Calcium 9.3 mg/dL (8.4-10.2); Hemolysis Index 3
[2019-05-04 06:29] LABS: Creatine Kinase MB 308.9 ng/mL (0.0-4.0)
--- NOTE | 2019-05-04 07:06 | Consultation ---
HISTORY OF PRESENT ILLNESS: The patient is a 58-year-old female who started having some anterior chest discomfort of 5 days' duration which she thought from bronchitis. This afternoon it got very severe, anterior chest discomfort over the entire chest associated with shortness of breath or nausea. Paramedics were called and she was found to be in torsade and was cardioverted. She was brought to the Emergency Room. EKG showed sinus rhythm with ST elevations in I and aVL with reciprocal ST depressions consistent with a lateral infarct. The patient continues to have pain. The patient's blood pressure was elevated, was given IV heparin and started on IV nitroglycerin in the Emergency Room and was brought to the catheterization laboratory as a part of the STEMI protocol. The patient was explained of the diagnosis and treatment plans. She understands. The patient's past medical history is significant with history of diabetes mellitus of 4-5 years' duration, history of hypertension. She did not have any insurance for last few years. Did not take any medication. Recently, she got her insurance and started taking medicines and trying to find a new physician. SOCIAL HISTORY: Smokes 1 pack per day for last 20 years, drinks alcohol 6-7 cans of beer a day. The patient does not use any drugs. The patient has 1 biological child. REVIEW OF SYSTEMS: The patient denied any previous cardiac history. No history of myocardial infarction or congestive heart failure. History of hypertension and diabetes mellitus, but no history of hyperlipidemia. No history of asthma or emphysema. Denies any history of pulmonary emboli. No history of strokes or seizures. No history of GI bleed. Denied any fever, coughing recently. No leg swelling. She does not do any regular exercise. SURGICAL HISTORY: Included hysterectomy in the past. PHYSICAL EXAMINATION: GENERAL: The patient appears to be comfortable at this point complaining of chest pain, in no acute distress. HEENT: Conjunctivae pink. Sclerae anicteric. NECK: Supple, no JVD. HEART: Regular, probably S4, no S3, no significant murmurs. LUNGS: Decreased breath sounds noted. ABDOMEN: Benign, obese. EXTREMITIES: Without edema. NEUROLOGIC: Alert, oriented x 3. FINAL IMPRESSION: 1. Chest pain of 5 days' duration, but was for the last few hours along with the ST changes, suggestive of lateral infarct with ST elevation in 1 and aVL and reciprocal changes. The patient also apparently went into torsade outside and was cardioverted. Presently, she is in sinus rhythm. Considering her EKG changes based on chest pain, she was brought to the catheterization laboratory on an emergency basis. 2. Diabetes mellitus. 3. Hypertension. 4. Chronic smoking. The patient is hemodynamically stable at this point. JOB# [id number] DENISE/NTS
[2019-05-04] MEDS: METOPROLOL TARTRATE 50 MG TAB PO SCH ×2 (09:42→21:25)
[2019-05-04] MEDS: FAMOTIDINE 20 MG TAB PO SCH ×2 (09:42→21:25)
[2019-05-04] MEDS: LOSARTAN 25 MG TAB PO SCH (09:42)
[2019-05-04] MEDS: TICAGRELOR 90 MG TAB PO SCH ×2 (09:42→21:25)
[2019-05-04] MEDS: ASPIRIN 81 MG TAB CHEW PO SCH (09:43)
--- NOTE | 2019-05-04 10:29 | Consultation ---
History of Present Illness Consult date: 05/04/19 Past History Past Medical History: other (as noted in HPI) Past Surgical History: hysterectomy Social history: smoking (x19 years ) Family history: CAD, diabetes, hypertension Medications and Allergies Allergies Allergy/AdvReac Type Severity Reaction Status Date / Time No Known Allergies Allergy Unverified 05/03/19 17:31 Active Meds: Active Medications Acetaminophen (Tylenol) 650 mg PO Q4H PRN PRN Reason: Pain MILD(1-3)/Fever >100.5/HANNON Acetaminophen/Hydrocodone Bitart ([place] 5/325) 1 each PO Q6H PRN PRN Reason: Pain, Moderate (4-6) Aspirin (Baby Aspirin) 81 mg PO QDAY [facility] Last Admin: 05/04/19 09:43 Dose: 81 mg Documented by: Atorvastatin Calcium (Lipitor) 80 mg PO QHS [facility] Last Admin: 05/03/19 22:22 Dose: 80 mg Documented by: Famotidine (Pepcid) 20 mg PO BID [facility] Last Admin: 05/04/19 09:42 Dose: 20 mg Documented by: Hydromorphone HCl (Dilaudid) 0.5 mg IV Q3H PRN PRN Reason: Pain , Severe (7-10) Last Admin: 05/03/19 22:25 Dose: 0.5 mg Documented by: Heparin Sodium/Sodium Chloride (Heparin/ 0.45% Nacl-25,000 Unit/500 Ml) 25,000 unit in 500 mls @ 20 mls/hr IV TITRATE MANUEL; Protocol Last Titration: 05/04/19 10:10 Dose: 1,100 units/hr, 22 mls/hr Documented by: Sodium Chloride (Nacl 0.9% 1000 Ml) 1,000 mls @ 75 mls/hr IV DIRECT [facility] Last Admin: 05/03/19 22:36 Dose: 75 mls/hr Documented by: Nitroglycerin/Dextrose (Tridil Drip 50mg/250ml) 50 mg in 250 mls @ 3 mls/hr IV TITR ONE; Protocol Stop: 05/07/19 08:19 Last Titration: 05/04/19 09:57 Dose: 10 mcg/min, 3 mls/hr Documented by: Losartan Potassium (Cozaar) 25 mg PO QDAY [facility] Last Admin: 05/04/19 09:42 Dose: 25 mg Documented by: Metoclopramide HCl (Reglan) 10 mg IV ONCE ONE Stop: 05/04/19 11:01 Metoprolol Tartrate (Metoprolol) 50 mg PO BID [facility] Last Admin: 05/04/19 09:42 Dose: 50 mg Documented by: Ondansetron HCl (Zofran) 4 mg IV Q4H PRN PRN Reason: Nausea And Vomiting Last Admin: 05/04/19 07:40 Dose: 4 mg Documented by: Oxycodone/Acetaminophen (Percocet 5/325) 1 tab PO Q6H PRN PRN Reason: Pain, Moderate (4-6) Sodium Chloride (Sodium Chloride Flush Syringe 10 Ml) 10 ml IV BID [facility] Last Admin: 05/04/19 09:43 Dose: 10 ml Documented by: Sodium Chloride (Sodium Chloride Flush Syringe 10 Ml) 10 ml IV PRN PRN PRN Reason: LINE FLUSH Ticagrelor (Brilinta) 90 mg PO BID [facility] Last Admin: 05/04/19 09:42 Dose: 90 mg Documented by: Tramadol HCl (Ultram) 50 mg PO Q4H PRN PRN Reason: Pain, Mild (1-3) Physical Examination Vital signs: Vital Signs Pulse Resp BP Pulse Ox 88 18 178/88 95 05/03/19 17:20 05/03/19 17:20 05/03/19 17:20 05/03/19 17:20 Results - Laboratory Findings CBC and BMP: 05/04/19 04:27 05/04/19 04:27 PT/INR, D-dimer PT 12.5 Sec. (12.2-14.9) 05/03/19 17:23 INR 0.92 (0.87-1.13) 05/03/19 17:23 Abnormal lab findings: Abnormal Labs 05/03/19 05/03/19 05/03/19 17:23 17:23 21:36 WBC 11.5 H RBC 5.48 H Hgb 17.3 H Hct 51.3 H Lymph % (Auto) 37.7 H [place] # Seg Neutrophils % Seg Neutrophils # Heparin Anti-Xa Level Sodium 131 L Potassium 3.4 L Chloride 91.4 L Carbon Dioxide 17 L BUN 6 L Creatinine 0.6 L Glucose 170 H POC Glucose Total Creatine Kinase CK-MB (CK-2) CK-MB (CK-2) Rel Index Troponin T 4.520 H* D Cholesterol 294 H LDL Cholesterol Direct 223 H 05/03/19 05/04/19 05/04/19 23:32 00:28 04:27 WBC 15.1 H RBC Hgb 15.3 H Hct 45.2 H D Lymph % (Auto) [place] # 0.9 H Seg Neutrophils % 79.1 H Seg Neutrophils # 11.9 H Heparin Anti-Xa Level Sodium Potassium Chloride Carbon Dioxide BUN Creatinine Glucose POC Glucose 141 H Total Creatine Kinase CK-MB (CK-2) CK-MB (CK-2) Rel Index Troponin T 4.090 H* Cholesterol LDL Cholesterol Direct 05/04/19 05/04/19 04:27 08:55 WBC RBC Hgb Hct Lymph % (Auto) [place] # Seg Neutrophils % Seg Neutrophils # Heparin Anti-Xa Level 0.24 L Sodium Potassium Chloride 97.6 L Carbon Dioxide BUN Creatinine 0.5 L Glucose 171 H POC Glucose Total Creatine Kinase 3035 H CK-MB (CK-2) 308.9 H CK-MB (CK-2) Rel Index 10.1 H Troponin T 3.450 H* Cholesterol LDL Cholesterol Direct
[2019-05-04] MEDS ORDERED: METOCLOPRAMIDE 10 MG/2 ML INJ IV ONE (11:00)
[2019-05-04 11:37] LABS: Bilirubin,Urine NEG (Negative); Blood,Urine NEG (Negative); Color,Urine Yellow (Yellow); Protein,Urine <15 mg/dL mg/dL (Negative); Urobilinogen,Urine < 2.0 mg/dL (<2.0); WBC,Urine < 1.0 /HPF (0.0-6.0)
--- NOTE | 2019-05-04 11:48 | Progress Note ---
Assessment and Plan STEMI - ST elevation on lead 1 and aVL -monitor with serial CE and EKG -as needed SL NTG and pain control -Monitor BP, add betablocker and ACEI if BP tolerates -Cardiology consulted and s/p cardiac cath with PCI, plan for another cath for PCI tomorrow s/p cardiac arrest, cardiology following - due to CAD and stemi, s/p PCI - cont to monitor, cardiology following, follow 2d echo Obesity -BMI 36.6 -Balanced diet -increase physical activity at discharge -lipid panel Hypertension -on NTG drip, cont home meds -Monitor BP q shift Hyponatremia -mild, Na on admission 131 -Slowly correct Na with IVF -Continue to monitor replete prn Hypokalemia -Mild , -Potassium on admission 3.4 -Likely secondary to vomiting -Follow-up on repeat potassium labs -Continue to monitor DM -POC BG monitoring -SSI coverage prn DVT prophylaxis -SCD to bilateral lower extremities while in bed - therapeutic anticoagulation as per cardiology team. The high probability of a clinically significant, sudden or life threatening deterioration of the [CVS] system(s) required my full and direct attention, intervention and personal management. The aggregate critical care time was [32] minutes. This time is in addition to time spent performing reported procedures but includes the following: [x] Data Review and interpretation [x] Patient assessment and monitoring of vital signs [x] Documentation [x] Medication orders and management Advance Directives: No VTE prophylaxis?: Mechanical Reason for no VTE Prophylaxis: Surgical contraindication Plan of care discussed with patient/family: Yes Subjective Date of service: 05/04/19 Interval history: Patient seen and examined no chest pain today, BP stable with NTG drip family at bedside - updated Objective - Constitutional Vitals: Vital Signs - 12hr 05/03/19 05/04/19 05/04/19 23:50 00:00 00:10 Temperature 97.6 F Pulse Rate 79 77 72 Respiratory 16 14 17 Rate Blood Pressure 139/85 148/87 148/87 O2 Sat by Pulse 94 93 96 Oximetry 05/04/19 05/04/19 05/04/19 00:20 00:30 00:40 Temperature Pulse Rate 71 75 73 Respiratory 17 21 16 Rate Blood Pressure 151/87 152/76 152/76 O2 Sat by Pulse 95 89 97 Oximetry 05/04/19 05/04/19 05/04/19 00:50 01:00 01:10 Temperature Pulse Rate 69 68 68 Respiratory 17 15 16 Rate Blood Pressure 152/76 156/97 156/97 O2 Sat by Pulse 96 94 95 Oximetry 05/04/19 05/04/19 05/04/19 01:20 01:30 01:40 Temperature Pulse Rate 68 68 69 Respiratory 17 17 14 Rate Blood Pressure 156/97 159/90 159/90 O2 Sat by Pulse 96 94 95 Oximetry 05/04/19 05/04/19 05/04/19 01:41 01:50 02:00 Temperature Pulse Rate 77 67 66 Respiratory 15 16 Rate Blood Pressure 159/90 151/92 O2 Sat by Pulse 95 95 Oximetry 05/04/19 05/04/19 05/04/19 02:10 02:20 02:30 Temperature Pulse Rate 69 70 70 Respiratory 18 18 18 Rate Blood Pressure 151/92 151/92 154/87 O2 Sat by Pulse 95 95 94 Oximetry 05/04/19 05/04/19 05/04/19 02:40 02:50 03:00 Temperature Pulse Rate 69 69 64 Respiratory 19 15 16 Rate Blood Pressure 154/87 154/87 160/87 O2 Sat by Pulse 96 96 96 Oximetry 05/04/19 05/04/19 05/04/19 03:10 03:20 03:30 Temperature Pulse Rate 68 88 78 Respiratory 14 12 19 Rate Blood Pressure 160/87 160/87 147/80 O2 Sat by Pulse 97 97 88 Oximetry 05/04/19 05/04/19 05/04/19 03:40 03:49 03:50 Temperature 98.1 F Pulse Rate 64 63 Respiratory 16 15 Rate Blood Pressure 147/80 147/80 O2 Sat by Pulse 94 95 Oximetry 05/04/19 05/04/19 05/04/19 04:00 04:10 04:20 Temperature Pulse Rate 63 63 65 Respiratory 15 15 16 Rate Blood Pressure 149/78 149/78 149/78 O2 Sat by Pulse 94 95 95 Oximetry 05/04/19 05/04/19 05/04/19 04:30 04:40 04:50 Temperature Pulse Rate 71 74 66 Respiratory 17 20 16 Rate Blood Pressure 164/84 164/84 164/84 O2 Sat by Pulse 94 96 96 Oximetry 05/04/19 05/04/19 05/04/19 05:00 05:10 05:20 Temperature Pulse Rate 70 77 66 Respiratory 21 16 15 Rate Blood Pressure 162/100 162/100 162/100 O2 Sat by Pulse 95 97 95 Oximetry 05/04/19 05/04/19 05/04/19 05:30 05:40 05:50 Temperature Pulse Rate 66 71 66 Respiratory 18 17 21 Rate Blood Pressure 158/80 158/80 158/80 O2 Sat by Pulse 92 94 95 Oximetry 05/04/19 05/04/19 05/04/19 06:00 06:10 06:20 Temperature Pulse Rate 67 70 73 Respiratory 20 20 9 L Rate Blood Pressure 161/81 161/81 161/81 O2 Sat by Pulse 92 95 95 Oximetry 05/04/19 05/04/19 05/04/19 06:30 06:40 06:50 Temperature Pulse Rate 70 66 63 Respiratory 17 18 15 Rate Blood Pressure 136/89 136/89 136/89 O2 Sat by Pulse 95 96 96 Oximetry 05/04/19 05/04/19 05/04/19 07:00 07:10 07:20 Temperature Pulse Rate 67 63 71 Respiratory 17 16 16 Rate Blood Pressure 155/91 155/91 155/91 O2 Sat by Pulse 96 96 95 Oximetry 05/04/19 05/04/19 05/04/19 07:30 07:38 07:40 Temperature Pulse Rate 76 68 Respiratory 20 12 13 Rate Blood Pressure 158/90 158/90 O2 Sat by Pulse 94 95 Oximetry 05/04/19 05/04/19 05/04/19 07:50 08:00 08:06 Temperature 96.8 F L Pulse Rate 71 68 Respiratory 15 16 Rate Blood Pressure 158/90 148/81 O2 Sat by Pulse 96 95 96 Oximetry 05/04/19 05/04/19 05/04/19 08:10 08:20 08:30 Temperature Pulse Rate 63 64 66 Respiratory 13 16 15 Rate Blood Pressure 148/81 148/81 153/86 O2 Sat by Pulse 97 96 94 Oximetry 05/04/19 05/04/19 05/04/19 08:40 08:50 09:00 Temperature Pulse Rate 65 64 64 Respiratory 18 15 22 Rate Blood Pressure 153/86 153/86 148/82 O2 Sat by Pulse 96 97 95 Oximetry 05/04/19 05/04/19 05/04/19 09:10 09:20 09:30 Temperature Pulse Rate 66 67 65 Respiratory 18 19 18 Rate Blood Pressure 148/82 148/82 167/92 O2 Sat by Pulse 96 94 95 Oximetry 05/04/19 05/04/19 05/04/19 09:40 09:41 09:42 Temperature Pulse Rate 67 67 66 Respiratory 16 Rate Blood Pressure 167/92 167/92 O2 Sat by Pulse 96 Oximetry 05/04/19 05/04/19 05/04/19 09:50 10:00 10:10 Temperature Pulse Rate 65 70 72 Respiratory 12 13 21 Rate Blood Pressure 167/92 167/92 167/92 O2 Sat by Pulse 96 97 95 Oximetry 05/04/19 05/04/19 05/04/19 10:20 10:30 10:40 Temperature Pulse Rate 68 74 63 Respiratory 22 17 17 Rate Blood Pressure 167/92 142/72 142/72 O2 Sat by Pulse 95 95 95 Oximetry 05/04/19 05/04/19 05/04/19 10:50 11:00 11:10 Temperature Pulse Rate 70 84 71 Respiratory 14 17 14 Rate Blood Pressure 142/72 142/72 143/84 O2 Sat by Pulse 96 96 96 Oximetry 05/04/19 11:20 Temperature Pulse Rate 72 Respiratory 10 L Rate Blood Pressure 143/84 O2 Sat by Pulse 97 Oximetry General appearance: Present: no acute distress, obese - EENT Eyes: PERRL, EOM intact ENT: hearing intact, clear oral mucosa Ears: bilateral: normal - Neck Neck: supple, normal ROM - Respiratory Respiratory effort: normal Respiratory: bilateral: CTA - Cardiovascular Rhythm: regular Heart Sounds: Present: S1 & S2. Absent: gallop, rub Extremities: pulses intact, No edema, normal color, Full ROM - Gastrointestinal General gastrointestinal: Present: soft, non-tender, non-distended, normal bowel sounds - Integumentary Integumentary: clear, warm, dry - Musculoskeletal Musculoskeletal: 1, strength equal bilaterally - Neurologic Neurologic: moves all extremities - Psychiatric Psychiatric: memory intact, appropriate mood/affect, intact judgment & insight - Labs CBC & Chem 7: 05/05/19 03:58 05/05/19 03:58 Labs: Abnormal lab results 05/03/19 05/03/19 05/03/19 Range/Units 17:23 17:23 21:36 WBC 11.5 H (4.5-11.0) K/mm3 RBC 5.48 H (3.65-5.03) M/mm3 Hgb 17.3 H (10.1-14.3) gm/dl Hct 51.3 H (30.3-42.9) % Lymph % (Auto) 37.7 H (13.4-35.0) % [place] # (0.0-0.8) K/mm3 Seg Neutrophils % (40.0-70.0) % Seg Neutrophils # (1.8-7.7) K/mm3 Heparin Anti-Xa Level (0.3-0.7) U.I./ml Sodium 131 L (137-145) mmol/L Potassium 3.4 L (3.6-5.0) mmol/L Chloride 91.4 L (98-107) mmol/L Carbon Dioxide 17 L (22-30) mmol/L BUN 6 L (7-17) mg/dL Creatinine 0.6 L (0.7-1.2) mg/dL Glucose 170 H (65-100) mg/dL POC Glucose (70-105) Total Creatine Kinase (30-135) units/L CK-MB (CK-2) (0.0-4.0) ng/mL CK-MB (CK-2) Rel Index (0-4) Troponin T 4.520 H* D (0.00-0.029) ng/mL Cholesterol 294 H (50-199) mg/dL LDL Cholesterol Direct 223 H (50-130) mg/dL 05/03/19 05/04/19 05/04/19 Range/Units 23:32 00:28 04:27 WBC 15.1 H (4.5-11.0) K/mm3 RBC (3.65-5.03) M/mm3 Hgb 15.3 H (10.1-14.3) gm/dl Hct 45.2 H D (30.3-42.9) % Lymph % (Auto) (13.4-35.0) % [place] # 0.9 H (0.0-0.8) K/mm3 Seg Neutrophils % 79.1 H (40.0-70.0) % Seg Neutrophils # 11.9 H (1.8-7.7) K/mm3 Heparin Anti-Xa Level (0.3-0.7) U.I./ml Sodium (137-145) mmol/L Potassium (3.6-5.0) mmol/L Chloride (98-107) mmol/L Carbon Dioxide (22-30) mmol/L BUN (7-17) mg/dL Creatinine (0.7-1.2) mg/dL Glucose (65-100) mg/dL POC Glucose 141 H (70-105) Total Creatine Kinase (30-135) units/L CK-MB (CK-2) (0.0-4.0) ng/mL CK-MB (CK-2) Rel Index (0-4) Troponin T 4.090 H* (0.00-0.029) ng/mL Cholesterol (50-199) mg/dL LDL Cholesterol Direct (50-130) mg/dL 05/04/19 05/04/19 05/04/19 Range/Units 04:27 08:55 11:42 WBC (4.5-11.0) K/mm3 RBC (3.65-5.03) M/mm3 Hgb (10.1-14.3) gm/dl Hct (30.3-42.9) % Lymph % (Auto) (13.4-35.0) % [place] # (0.0-0.8) K/mm3 Seg Neutrophils % (40.0-70.0) % Seg Neutrophils # (1.8-7.7) K/mm3 Heparin Anti-Xa Level 0.24 L (0.3-0.7) U.I./ml Sodium (137-145) mmol/L Potassium (3.6-5.0) mmol/L Chloride 97.6 L (98-107) mmol/L Carbon Dioxide (22-30) mmol/L BUN (7-17) mg/dL Creatinine 0.5 L (0.7-1.2) mg/dL Glucose 171 H (65-100) mg/dL POC Glucose 111 H (70-105) Total Creatine Kinase 3035 H (30-135) units/L CK-MB (CK-2) 308.9 H (0.0-4.0) ng/mL CK-MB (CK-2) Rel Index 10.1 H (0-4) Troponin T 3.450 H* (0.00-0.029) ng/mL Cholesterol (50-199) mg/dL LDL Cholesterol Direct (50-130) mg/dL
[2019-05-04 11:50] LABS: Amphetamine Screen,Urine PRESUMPTIVE NEGATIVE; Benzodiazepines Screen,Urine PRESUMPTIVE NEGATIVE; Cannabinoid Screen,Urine PRESUMPTIVE NEGATIVE; Cocaine Screen,Urine PRESUMPTIVE NEGATIVE; Methadone Screen,Urine PRESUMPTIVE NEGATIVE; Opiate Screen,Urine PRESUMPTIVE NEGATIVE
[2019-05-04] MEDS ORDERED: SODIUM CHLORIDE 0.9% 500 ML 500 ML IV SCH (12:00)
--- NOTE | 2019-05-04 14:00 | Progress Note ---
Assessment and Plan S/p [facility] with multiple PCIs to obtuse marginal yesterday evening. Pt with some minimal chest discomfort and nausea this AM, ECG this AM NSR, no acute ischemic changes. Pt with 70% mid LAD lesion, will plan for staged PCI in AM. NPO after MN. Cont heparin gtt and nitro gtt. Cont ASA, brilinta, statin, lopressor, losartan. Obtain echo. The patient has been seen in conjunction with Dr. Nat Roque who agrees with the assessment and plan of care. - Patient Problems (1) STEMI (ST elevation myocardial infarction) Current Visit: Yes Status: Acute (2) CAD (coronary artery disease) Current Visit: Yes Status: Chronic (3) Stented coronary artery Current Visit: Yes Status: Chronic (4) HTN (hypertension) Current Visit: Yes Status: Chronic (5) Diabetes Current Visit: Yes Status: Chronic (6) Tobacco use Current Visit: Yes Status: Chronic Subjective Date of service: 05/04/19 Principal diagnosis: STEMI Interval history: pt resting in bed, anxious, c/o mild chest discomfort (2-3/10) and nausea. in SR on tele. heparin gtt infusing. Objective Last Vital Signs Temp 98 F 05/04/19 12:00 Pulse 65 05/04/19 14:00 Resp 21 05/04/19 14:00 BP 160/82 05/04/19 14:00 Pulse Ox 91 05/04/19 14:00 - Physical Examination General: Other (anxious) HEENT: Positive: PERRL Cardiac: Positive: Reg Rate and Rhythm, S1/S2 Lungs: Positive: Decreased Breath Sounds Neuro: Positive: Grossly Intact Incision: Cardiac Cath Site (RRA c/d/i, no bleeding or hematoma) Extremities: Absent: edema - Labs and Meds Cardiac Enzymes 05/03/19 05/04/19 Range/Units 17:23 04:27 AST 27 (5-40) units/L CK-MB (CK-2) 308.9 H (0.0-4.0) ng/mL Coagulation 05/03/19 Range/Units 17:23 PT 12.5 (12.2-14.9) Sec. INR 0.92 (0.87-1.13) APTT 26.4 (24.2-36.6) Sec. Lipids 05/03/19 Range/Units 21:36 Triglycerides 76 (2-149) mg/dL Cholesterol 294 H (50-199) mg/dL HDL Cholesterol 58 (40-59) mg/dL Cholesterol/HDL Ratio 5.06 % CBC 05/03/19 05/04/19 Range/Units 17:23 04:27 WBC 11.5 H 15.1 H (4.5-11.0) K/mm3 RBC 5.48 H 4.82 (3.65-5.03) M/mm3 Hgb 17.3 H 15.3 H (10.1-14.3) gm/dl Hct 51.3 H 45.2 H D (30.3-42.9) % Plt Count 241 225 (140-440) K/mm3 Lymph # 4.3 2.2 (1.2-5.4) K/mm3 [place] # 0.7 0.9 H (0.0-0.8) K/mm3 Eos # 0.3 0.0 (0.0-0.4) K/mm3 Baso # 0.1 0.1 (0.0-0.1) K/mm3 Comprehensive Metabolic Panel 05/03/19 05/03/19 05/04/19 Range/Units 17:23 17:23 04:27 Sodium 131 L 137 (137-145) mmol/L Potassium 3.4 L 4.3 D (3.6-5.0) mmol/L Chloride 91.4 L 97.6 L (98-107) mmol/L Carbon Dioxide 17 L 23 (22-30) mmol/L BUN 6 L 7 (7-17) mg/dL Creatinine 0.6 L 0.5 L (0.7-1.2) mg/dL Glucose 170 H 171 H (65-100) mg/dL Calcium 10.0 9.3 (8.4-10.2) mg/dL Direct Bilirubin < 0.2 (0-0.2) mg/dL Indirect Bilirubin 0.1 mg/dL AST 27 (5-40) units/L ALT 31 (7-56) units/L Alkaline Phosphatase 74 (35-129) units/L Total Protein 7.9 (6.3-8.2) g/dL Albumin 4.4 (3.9-5) g/dL - Imaging and Cardiology EKG: report reviewed - Telemetry EKG Rhythm: Sinus Rhythm
[2019-05-04] MEDS: traMADol 50 MG TAB PO PRN (14:46)
[2019-05-04] MEDS: SODIUM CHLORIDE 0.9% 1000 ML 1,000 ML IV SCH (14:47)
[2019-05-04] MEDS: METOCLOPRAMIDE 10 MG/2 ML INJ IV PRN ×2 (16:22→21:24)
[2019-05-04] MEDS: diphenhydrAMINE 25 MG CAP PO PRN ×2 (16:38→21:24)
[2019-05-04] MEDS: HEPARIN/ 0.45% NACL DRIP 25,000 UNIT/500 ML BAG IV SCH (21:26)
[2019-05-05] MEDS: SODIUM CHLORIDE 0.9% 1000 ML 1,000 ML IV SCH ×3 (04:07→17:02)
[2019-05-05 05:29] LABS: Basophils # (Auto) 0.1 K/mm3 (0.0-0.1); Basophils % (Auto) 0.5 % (0.0-1.8); Eosinophils # (Auto) 0.1 K/mm3 (0.0-0.4); Eosinophils % (Auto) 0.6 % (0.0-4.3); Hematocrit 42.7 % (30.3-42.9); Hemoglobin 14.5 gm/dl (10.1-14.3); Lymphocytes # (Auto) 4.2 K/mm3 (1.2-5.4); Lymphocytes % (Auto) 30.7 % (13.4-35.0); Mean Corpuscular HGB Conc 34 % (30-34); Mean Corpuscular Volume 94 fl (79-97); Monocytes # (Auto) 1.1 K/mm3 (0.0-0.8); Platelet Count 198 K/mm3 (140-440); Red Blood Count 4.55 M/mm3 (3.65-5.03)
[2019-05-05 05:38] LABS: INR 1.01 (0.87-1.13)
[2019-05-05 05:53] LABS: BUN/Creatinine Ratio 8; Blood Urea Nitrogen 4 mg/dL (7-17); Calcium 9.1 mg/dL (8.4-10.2); Hemolysis Index 19
[2019-05-05] MEDS: ASPIRIN 81 MG TAB CHEW PO SCH ×2 (07:55→12:31)
[2019-05-05] MEDS: TICAGRELOR 90 MG TAB PO SCH ×3 (07:55→21:48)
[2019-05-05] MEDS: LOSARTAN 25 MG TAB PO SCH ×2 (07:55→12:32)
[2019-05-05] MEDS ORDERED: IPRATROPIUM 0.02% NEBU 2.5 ML IH ONE (08:00)
[2019-05-05] MEDS ORDERED: HEPARIN/NS 5000 UNIT/500ML 1,000 ML IR ONE (09:24)
--- NOTE | 2019-05-05 10:05 | Progress Note ---
Subjective Date of service: 05/05/19 Principal diagnosis: STEMI Objective Vital Signs - 12hr 05/04/19 05/04/19 05/04/19 22:16 22:30 22:46 Temperature Pulse Rate 64 63 63 Respiratory 18 17 18 Rate Blood Pressure 143/86 142/86 142/86 O2 Sat by Pulse 96 97 Oximetry 05/04/19 05/04/19 05/04/19 22:56 23:00 23:30 Temperature Pulse Rate 62 60 63 Respiratory 18 15 17 Rate Blood Pressure 142/86 142/84 148/87 O2 Sat by Pulse 97 94 97 Oximetry 05/04/19 05/05/19 05/05/19 23:56 00:00 00:30 Temperature 98.8 F Pulse Rate 64 65 Respiratory 17 16 Rate Blood Pressure 158/86 153/80 O2 Sat by Pulse 95 Oximetry 05/05/19 05/05/19 05/05/19 00:46 01:00 01:16 Temperature Pulse Rate 69 74 64 Respiratory 21 17 16 Rate Blood Pressure 155/80 139/74 132/69 O2 Sat by Pulse 92 95 92 Oximetry 05/05/19 05/05/19 05/05/19 01:30 01:45 02:00 Temperature Pulse Rate 73 75 69 Respiratory 19 16 16 Rate Blood Pressure 132/69 146/80 139/71 O2 Sat by Pulse 94 95 95 Oximetry 05/05/19 05/05/19 05/05/19 02:16 02:30 02:46 Temperature Pulse Rate 67 73 64 Respiratory 16 16 17 Rate Blood Pressure 133/82 133/82 137/80 O2 Sat by Pulse 94 95 94 Oximetry 05/05/19 05/05/19 05/05/19 03:00 03:16 03:30 Temperature Pulse Rate 68 67 74 Respiratory 16 17 17 Rate Blood Pressure 137/80 141/79 141/79 O2 Sat by Pulse 95 93 95 Oximetry 05/05/19 05/05/19 05/05/19 03:46 04:00 04:15 Temperature 99 F Pulse Rate 91 H 74 65 Respiratory 17 22 18 Rate Blood Pressure 143/79 143/79 145/80 O2 Sat by Pulse 97 91 94 Oximetry 05/05/19 05/05/19 05/05/19 04:30 04:45 05:00 Temperature Pulse Rate 67 66 67 Respiratory 18 14 16 Rate Blood Pressure 137/74 120/78 120/78 O2 Sat by Pulse 90 93 93 Oximetry 05/05/19 05/05/19 05/05/19 05:16 05:30 05:45 Temperature Pulse Rate 74 82 69 Respiratory 15 18 14 Rate Blood Pressure 130/85 130/85 141/81 O2 Sat by Pulse 95 95 95 Oximetry 05/05/19 05/05/19 05/05/19 06:00 06:15 06:30 Temperature Pulse Rate 72 82 70 Respiratory 15 18 19 Rate Blood Pressure 143/83 147/67 151/82 O2 Sat by Pulse 92 88 92 Oximetry 05/05/19 05/05/19 05/05/19 06:45 07:00 07:15 Temperature Pulse Rate 76 66 69 Respiratory 15 17 17 Rate Blood Pressure 150/86 142/77 135/78 O2 Sat by Pulse 92 93 93 Oximetry 05/05/19 05/05/19 05/05/19 07:30 07:45 07:55 Temperature Pulse Rate 69 68 86 Respiratory 18 14 Rate Blood Pressure 135/78 135/81 135/81 O2 Sat by Pulse 94 96 Oximetry 05/05/19 08:00 Temperature 98.3 F Pulse Rate 85 Respiratory 20 Rate Blood Pressure 139/74 O2 Sat by Pulse 91 Oximetry CBC and BMP: 05/05/19 03:58 05/05/19 03:58 ABG, PT/INR, D-dimer: PT/INR, D-dimer PT 13.4 Sec. (12.2-14.9) 05/05/19 03:58 INR 1.01 (0.87-1.13) 05/05/19 03:58 Abnormal lab findings: Abnormal Labs 05/03/19 05/03/19 05/03/19 17:23 17:23 21:36 WBC 11.5 H RBC 5.48 H Hgb 17.3 H Hct 51.3 H Lymph % (Auto) 37.7 H Todd % (Auto) Todd # Seg Neutrophils % Seg Neutrophils # Heparin Anti-Xa Level Sodium 131 L Potassium 3.4 L Chloride 91.4 L Carbon Dioxide 17 L BUN 6 L Creatinine 0.6 L Glucose 170 H POC Glucose Total Creatine Kinase CK-MB (CK-2) CK-MB (CK-2) Rel Index Troponin T 4.520 H* D Cholesterol 294 H LDL Cholesterol Direct 223 H 05/03/19 05/04/19 05/04/19 23:32 00:28 04:27 WBC 15.1 H RBC Hgb 15.3 H Hct 45.2 H D Lymph % (Auto) Todd % (Auto) Todd # 0.9 H Seg Neutrophils % 79.1 H Seg Neutrophils # 11.9 H Heparin Anti-Xa Level Sodium Potassium Chloride Carbon Dioxide BUN Creatinine Glucose POC Glucose 141 H Total Creatine Kinase CK-MB (CK-2) CK-MB (CK-2) Rel Index Troponin T 4.090 H* Cholesterol LDL Cholesterol Direct 05/04/19 05/04/19 05/04/19 04:27 08:55 11:42 WBC RBC Hgb Hct Lymph % (Auto) Todd % (Auto) Todd # Seg Neutrophils % Seg Neutrophils # Heparin Anti-Xa Level 0.24 L Sodium Potassium Chloride 97.6 L Carbon Dioxide BUN Creatinine 0.5 L Glucose 171 H POC Glucose 111 H Total Creatine Kinase 3035 H CK-MB (CK-2) 308.9 H CK-MB (CK-2) Rel Index 10.1 H Troponin T 3.450 H* Cholesterol LDL Cholesterol Direct 05/04/19 05/04/19 05/04/19 11:44 14:19 17:44 WBC RBC Hgb Hct Lymph % (Auto) Todd % (Auto) Todd # Seg Neutrophils % Seg Neutrophils # Heparin Anti-Xa Level 0.19 L Sodium Potassium Chloride Carbon Dioxide BUN Creatinine Glucose POC Glucose 136 H Total Creatine Kinase CK-MB (CK-2) CK-MB (CK-2) Rel Index Troponin T 3.710 H* Cholesterol LDL Cholesterol Direct 05/04/19 05/05/19 05/05/19 18:33 00:32 03:03 WBC RBC Hgb Hct Lymph % (Auto) Todd % (Auto) Todd # Seg Neutrophils % Seg Neutrophils # Heparin Anti-Xa Level 0.28 L Sodium Potassium Chloride Carbon Dioxide BUN Creatinine Glucose POC Glucose 245 H 107 H Total Creatine Kinase CK-MB (CK-2) CK-MB (CK-2) Rel Index Troponin T Cholesterol LDL Cholesterol Direct 05/05/19 05/05/19 03:58 03:58 WBC 13.6 H RBC Hgb 14.5 H Hct Lymph % (Auto) Todd % (Auto) 8.0 H Todd # 1.1 H Seg Neutrophils % Seg Neutrophils # 8.2 H Heparin Anti-Xa Level Sodium Potassium Chloride Carbon Dioxide BUN 4 L Creatinine 0.5 L Glucose 115 H POC Glucose Total Creatine Kinase CK-MB (CK-2) CK-MB (CK-2) Rel Index Troponin T Cholesterol LDL Cholesterol Direct
[2019-05-05] MEDS: fentaNYL 100 MCG/2 ML INJ ONE ×2 (10:09→10:15)
[2019-05-05] MEDS: MIDAZOLAM 2 MG/2 ML INJ ONE ×2 (10:10→10:15)
[2019-05-05] MEDS: LIDOCAINE (2%) 20 MG/1 ML VIAL 20 ML MDV INFILTRATI ONE ×2 (10:10→10:16)
[2019-05-05] MEDS: HEPARIN 10,000 UNITS/10 ML VIAL ONE ×3 (10:11→10:23)
[2019-05-05] MEDS: VERAPAMIL 5 MG/2 ML INJ ONE ×2 (10:11→10:17)
[2019-05-05] MEDS: NITROGLYCERIN SYRINGE 3 ML ONE ×2 (10:12→10:17)
--- NOTE | 2019-05-05 10:15 | Progress Note ---
Assessment and Plan tte reviewed - EF 35-40%, impaired relaxation. s/p C with staged PCI of mid LAD this morning, EF 50-55%. Cont ASA, brilinta, statin, lopressor, losartan. D/c heparin and nitro gtts. Pt may tx out of CCU to telemetry from cardiology standpoint. Anticipate d/c in AM. The patient has been seen in conjunction with Dr. Nat Roque who agrees with the assessment and plan of care. - Patient Problems (1) STEMI (ST elevation myocardial infarction) Current Visit: Yes Status: Acute (2) CAD (coronary artery disease) Current Visit: Yes Status: Chronic (3) Stented coronary artery Current Visit: Yes Status: Chronic (4) Cardiomyopathy Current Visit: Yes Status: Chronic (5) HTN (hypertension) Current Visit: Yes Status: Chronic (6) Diabetes Current Visit: Yes Status: Chronic (7) Tobacco use Current Visit: Yes Status: Chronic Subjective Date of service: 05/05/19 Principal diagnosis: STEMI Interval history: pt resting in bed, no current complaints. for staged PCI today. Objective Last Vital Signs Temp 98.3 F 05/05/19 08:00 Pulse 85 05/05/19 08:00 Resp 15 05/05/19 08:00 BP 139/74 05/05/19 08:00 Pulse Ox 95 05/05/19 08:00 - Physical Examination General: Other (anxious) HEENT: Positive: PERRL Cardiac: Positive: Reg Rate and Rhythm, S1/S2 Lungs: Positive: Decreased Breath Sounds Neuro: Positive: Grossly Intact Incision: Cardiac Cath Site (RRA c/d/i, no bleeding or hematoma) Extremities: Absent: edema - Labs and Meds Coagulation 05/05/19 Range/Units 03:58 PT 13.4 (12.2-14.9) Sec. INR 1.01 (0.87-1.13) CBC 05/05/19 Range/Units 03:58 WBC 13.6 H (4.5-11.0) K/mm3 RBC 4.55 (3.65-5.03) M/mm3 Hgb 14.5 H (10.1-14.3) gm/dl Hct 42.7 (30.3-42.9) % Plt Count 198 (140-440) K/mm3 Lymph # 4.2 (1.2-5.4) K/mm3 [place] # 1.1 H (0.0-0.8) K/mm3 Eos # 0.1 (0.0-0.4) K/mm3 Baso # 0.1 (0.0-0.1) K/mm3 Comprehensive Metabolic Panel 05/05/19 Range/Units 03:58 Sodium 140 (137-145) mmol/L Potassium 3.7 (3.6-5.0) mmol/L Chloride 102.2 (98-107) mmol/L Carbon Dioxide 25 (22-30) mmol/L BUN 4 L (7-17) mg/dL Creatinine 0.5 L (0.7-1.2) mg/dL Glucose 115 H (65-100) mg/dL Calcium 9.1 (8.4-10.2) mg/dL - Imaging and Cardiology EKG: report reviewed
[2019-05-05] MEDS ORDERED: ONDANSETRON 4 MG/2 ML INJ ONE (11:01)
[2019-05-05] MEDS: ONDANSETRON 4 MG/2 ML INJ IV PRN (11:03)
--- NOTE | 2019-05-05 11:08 | Cardiac Catherization Report ---
REFERRING PHYSICIAN: Hospitalist service. INDICATION FOR PROCEDURE: The patient is a very pleasant 58-year-old female presented 2 nights ago with a lateral ST elevation myocardial infarction with primary PCI of left circumflex, 90% hazy mid LAD is noted, recurrent chest pain yesterday, here for elective staged PCI of LAD. Risks, benefits, alternatives discussed at length prior to obtaining informed consent. PROCEDURE IN DETAIL: The patient was brought to the distillery laborer in a postoperative state, prepped and draped in sterile fashion. Dell's test in right hand was normal. A 2 mL of 2% lidocaine used to anesthetize the right wrist. A standard 6-Mexican hydrophilic sheath used to cannulate the right radial artery via modified Seldinger technique. All exchanges performed to exchange a J-tip guidewire. JL3.5 catheter was used to engage the left main. No dampening or ventricularization. Cineangiography performed in all projections. JR4 catheter was used to cross the aortic valve under fluoroscopic guidance. Left ventriculography performed in 30 BOWLING and 30 FRANK projections via hand injections, catheter flushed. Manual pullback performed with continuous pressure monitoring. An EBU guide was used to engage the left main. DATA: Aortic pressure is 140/70, LV pressure is 140. LVP of 20 mmHg. Left ventriculography reveals preserved left ventricular function of 50-55%. No evidence of aortic stenosis. Normal LVEDP. CORONARY ANATOMY: This is a right dominant system. Right coronary is a moderate sized vessel, courses AV groove, distally bifurcates into posterior and posterolateral branches, long 30-40% mid right coronary stenosis. No obstructive disease noted in the right coronary. Left main without significant disease, bifurcates into left anterior descending and left circumflex. No significant disease. Left main, left circumflex is a moderate sized vessel, courses AV groove, stents noted throughout the large high OM trunk, 30-40% proximal left circumflex stenosis, but AZAM 3 flow throughout the circumflex system. LAD is a moderate sized vessel, courses anterior groove, 90% hazy, high mid LAD stenosis is noted. We turned our attention to PCI. Heparin given. Abnormal ACT confirmed. The patient already on aspirin and Brilinta. We used a [place] wire to cross the lesion without difficulty. I used an [place] 3.0 x 15 drug-eluting stent deployed at 12 TREE for 30 seconds. Excellent final angiographic result. Next, intravascular ultrasound was performed, which reveals well apposed and well expanded stent. No complications, excellent result. I directly supervised the administration of moderate sedation from 10:14 a.m. to 10:45 a.m. with fentanyl and Versed. CONCLUSIONS: 1. Successful PCI of 90% hazy high mid LAD stenosis with placement of drug-eluting stent (Aleksandr 3.0 x 15) with excellent final angiographic and ultrasonographic results in the milieu of ST elevation myocardial infarction, recurrent chest pain. 2. Patent OM trunk stents, nonobstructive disease noted in the right coronary. No left main disease. Preserved LV function. The patient is clinically stable, chest pain free. Continue aspirin and Brilinta. Discontinue heparin, statin therapy, aggressive primary and secondary prevention measures. The patient will be transferred back to ICU. Results of the procedure explained to the patient and family. All questions and concerns were addressed. JOB# [id number] SEVERINO/CHINTAN
[2019-05-05] MEDS: METOCLOPRAMIDE 10 MG/2 ML INJ IV PRN ×2 (14:23→19:47)
[2019-05-05] MEDS: METOPROLOL TARTRATE 50 MG TAB PO SCH ×2 (14:23→21:48)
[2019-05-05] MEDS: FAMOTIDINE 20 MG TAB PO SCH ×2 (14:23→21:47)
[2019-05-05] MEDS: traMADol 50 MG TAB PO PRN (14:24)
--- NOTE | 2019-05-05 15:23 | Progress Note ---
Assessment and Plan /STEMI - ST elevation on lead 1 and aVL -monitored with serial CE and EKG -as needed SL NTG and pain control -Cardiology consulted and s/p cardiac cath with PCI -tte reviewed - EF 35-40%, impaired relaxation. - s/p [facility] with staged PCI of mid LAD this morning -Cont ASA, brilinta, statin, lopressor, losartan. D/c heparin and nitro gtts. Anticipate d/c in AM. /s/p cardiac arrest, cardiology following - due to CAD and stemi, s/p PCI - cont to monitor, cardiology following, follow 2d echo /Acute systolic CHFrEF 35-40% - monitor ins/os, urine output, cardiology following / Obesity -BMI 36.6 -Recommended Balanced diet /Hypertension -s/p NTG drip, cont home meds and adjust medications -Monitor BP q shift /Hyponatremia -mild, Na on admission 131 -Slowly correct Na with IVF -Continue to monitor replete prn /Hypokalemia -Mild , -Potassium on admission 3.4 -Likely secondary to vomiting -Follow-up on repeat potassium labs -Continue to monitor /DM -POC BG monitoring -SSI coverage prn / DVT prophylaxis -SCD to bilateral lower extremities while in bed - s/p therapeutic anticoagulation as per cardiology team. transfer out of ICU today Advance Directives: No VTE prophylaxis?: Mechanical Reason for no VTE Prophylaxis: Surgical contraindication Plan of care discussed with patient/family: Yes Subjective Date of service: 05/05/19 Principal diagnosis: STEMI Interval history: Patient seen and examined no chest pain today, s/p repeat cardiac cath today family at bedside - updated Objective - Constitutional Vitals: Vital Signs - 12hr 05/05/19 05/05/19 05/05/19 03:16 03:30 03:46 Temperature Pulse Rate 67 74 91 H Respiratory 17 17 17 Rate Respiratory Rate [Right Wrist] Blood Pressure 141/79 141/79 143/79 O2 Sat by Pulse 93 95 97 Oximetry 05/05/19 05/05/19 05/05/19 04:00 04:15 04:30 Temperature 99 F Pulse Rate 74 65 67 Respiratory 22 18 18 Rate Respiratory Rate [Right Wrist] Blood Pressure 143/79 145/80 137/74 O2 Sat by Pulse 91 94 90 Oximetry 05/05/19 05/05/19 05/05/19 04:45 05:00 05:16 Temperature Pulse Rate 66 67 74 Respiratory 14 16 15 Rate Respiratory Rate [Right Wrist] Blood Pressure 120/78 120/78 130/85 O2 Sat by Pulse 93 93 95 Oximetry 05/05/19 05/05/19 05/05/19 05:30 05:45 06:00 Temperature Pulse Rate 82 69 72 Respiratory 18 14 15 Rate Respiratory Rate [Right Wrist] Blood Pressure 130/85 141/81 143/83 O2 Sat by Pulse 95 95 92 Oximetry 05/05/19 05/05/19 05/05/19 06:15 06:30 06:45 Temperature Pulse Rate 82 70 76 Respiratory 18 19 15 Rate Respiratory Rate [Right Wrist] Blood Pressure 147/67 151/82 150/86 O2 Sat by Pulse 88 92 92 Oximetry 05/05/19 05/05/19 05/05/19 07:00 07:15 07:30 Temperature Pulse Rate 66 69 69 Respiratory 17 17 18 Rate Respiratory Rate [Right Wrist] Blood Pressure 142/77 135/78 135/78 O2 Sat by Pulse 93 93 94 Oximetry 05/05/19 05/05/19 05/05/19 07:45 07:55 08:00 Temperature 98.3 F Pulse Rate 68 86 85 Respiratory 14 20 Rate Respiratory Rate [Right Wrist] Blood Pressure 135/81 135/81 139/74 O2 Sat by Pulse 96 91 Oximetry 05/05/19 05/05/19 05/05/19 11:06 11:15 11:30 Temperature 98.9 F Pulse Rate 73 66 65 Respiratory 14 11 L 11 L Rate Respiratory Rate [Right Wrist] Blood Pressure 130/71 135/76 142/84 O2 Sat by Pulse 92 95 90 Oximetry 05/05/19 05/05/19 05/05/19 11:45 12:00 12:30 Temperature Pulse Rate 64 68 73 Respiratory 14 15 15 Rate Respiratory Rate [Right Wrist] Blood Pressure 153/69 141/76 145/84 O2 Sat by Pulse 91 91 90 Oximetry 05/05/19 05/05/19 05/05/19 13:00 13:08 13:16 Temperature Pulse Rate 77 77 Respiratory 13 13 Rate Respiratory Rate [Right Wrist] Blood Pressure 149/89 149/83 O2 Sat by Pulse 95 95 95 Oximetry 05/05/19 05/05/19 05/05/19 13:30 13:45 14:00 Temperature Pulse Rate 79 80 77 Respiratory 13 12 15 Rate Respiratory 13 Rate [Right Wrist] Blood Pressure 149/83 174/99 171/94 O2 Sat by Pulse 94 95 91 Oximetry 05/05/19 05/05/19 05/05/19 14:23 14:24 14:30 Temperature Pulse Rate 78 79 Respiratory 14 16 Rate Respiratory Rate [Right Wrist] Blood Pressure 185/98 188/92 O2 Sat by Pulse 96 Oximetry 05/05/19 15:00 Temperature Pulse Rate 79 Respiratory 13 Rate Respiratory Rate [Right Wrist] Blood Pressure 169/83 O2 Sat by Pulse 95 Oximetry General appearance: Present: no acute distress, obese - EENT Eyes: PERRL, EOM intact ENT: hearing intact, clear oral mucosa Ears: bilateral: normal - Neck Neck: supple, normal ROM - Respiratory Respiratory effort: normal Respiratory: bilateral: CTA - Cardiovascular Rhythm: regular Heart Sounds: Present: S1 & S2. Absent: gallop, rub Extremities: pulses intact, No edema, normal color, Full ROM - Gastrointestinal General gastrointestinal: Present: soft, non-tender, non-distended, normal bowel sounds - Integumentary Integumentary: clear, warm, dry - Musculoskeletal Musculoskeletal: 1, strength equal bilaterally - Neurologic Neurologic: moves all extremities - Psychiatric Psychiatric: memory intact, appropriate mood/affect, intact judgment & insight - Labs CBC & Chem 7: 05/06/19 05:05 05/06/19 05:05 Labs: Abnormal lab results 05/04/19 05/04/19 05/05/19 Range/Units 17:44 18:33 00:32 WBC (4.5-11.0) K/mm3 Hgb (10.1-14.3) gm/dl [place] % (Auto) (0.0-7.3) % [place] # (0.0-0.8) K/mm3 Seg Neutrophils # (1.8-7.7) K/mm3 Activated Clotting Time (74-137) Heparin Anti-Xa Level 0.19 L 0.28 L (0.3-0.7) U.I./ml BUN (7-17) mg/dL Creatinine (0.7-1.2) mg/dL Glucose (65-100) mg/dL POC Glucose 245 H (70-105) 05/05/19 05/05/19 05/05/19 Range/Units 03:03 03:58 03:58 WBC 13.6 H (4.5-11.0) K/mm3 Hgb 14.5 H (10.1-14.3) gm/dl [place] % (Auto) 8.0 H (0.0-7.3) % [place] # 1.1 H (0.0-0.8) K/mm3 Seg Neutrophils # 8.2 H (1.8-7.7) K/mm3 Activated Clotting Time (74-137) Heparin Anti-Xa Level (0.3-0.7) U.I./ml BUN 4 L (7-17) mg/dL Creatinine 0.5 L (0.7-1.2) mg/dL Glucose 115 H (65-100) mg/dL POC Glucose 107 H (70-105) 05/05/ Range/Units 10:46 WBC (4.5-11.0) K/mm3 Hgb (10.1-14.3) gm/dl [place] % (Auto) (0.0-7.3) % [place] # (0.0-0.8) K/mm3 Seg Neutrophils # (1.8-7.7) K/mm3 Activated Clotting Time 263 H (74-137) Heparin Anti-Xa Level (0.3-0.7) U.I./ml BUN (7-17) mg/dL Creatinine (0.7-1.2) mg/dL Glucose (65-100) mg/dL POC Glucose (70-105) - Imaging and cardiology Chest x-ray: report reviewed
[2019-05-05] MEDS: diphenhydrAMINE 25 MG CAP PO PRN (21:47)
[2019-05-05] MEDS ORDERED: diphenhydrAMINE 50 MG CAP PO PRN (23:34)
[2019-05-05] MEDS ORDERED: diphenhydrAMINE 25 MG CAP PO ONE (23:45)
[2019-05-06 05:33] LABS: Basophils # (Auto) 0.1 K/mm3 (0.0-0.1); Basophils % (Auto) 0.5 % (0.0-1.8); Eosinophils # (Auto) 0.2 K/mm3 (0.0-0.4); Eosinophils % (Auto) 1.9 % (0.0-4.3); Hematocrit 40.6 % (30.3-42.9); Hemoglobin 13.6 gm/dl (10.1-14.3); Lymphocytes % (Auto) 26.3 % (13.4-35.0); Mean Corpuscular HGB Conc 34 % (30-34); Mean Corpuscular Volume 94 fl (79-97); Monocytes # (Auto) 1.3 K/mm3 (0.0-0.8); Monocytes % (Auto) 11.2 % (0.0-7.3); Platelet Count 186 K/mm3 (140-440); Red Blood Count 4.31 M/mm3 (3.65-5.03); Red Cell Distribution Width 14.6 % (13.2-15.2)
[2019-05-06 05:49] LABS: BUN/Creatinine Ratio 8; Blood Urea Nitrogen 5 mg/dL (7-17); Calcium 8.9 mg/dL (8.4-10.2); Creatine Kinase MB 8.2 ng/mL (0.0-4.0); Hemolysis Index 5
[2019-05-06 08:34] VITALS: BP 154/85
[2019-05-06] MEDS: TICAGRELOR 90 MG TAB PO SCH (10:01)
[2019-05-06] MEDS: LOSARTAN 25 MG TAB PO SCH (10:01)
[2019-05-06] MEDS: ASPIRIN 81 MG TAB CHEW PO SCH (10:02)
[2019-05-06] MEDS: FAMOTIDINE 20 MG TAB PO SCH (10:02)
[2019-05-06] MEDS: METOPROLOL TARTRATE 50 MG TAB PO SCH (10:02)
--- NOTE | 2019-05-06 10:37 | Discharge Summary ---
Providers - Providers Date of Admission: 05/03/19 19:05 Date of discharge: 05/06/19 Attending physician: KIRBY SUN 05/03/19 Consult to Cardiac Rehabilitation [CONS] Routine Reason For Exam: post pci 05/04/19 09:01 Consult to Physician [CONS] Routine Comment: Consulting Provider: KRISTEN SANDOVAL Physician Instructions: Reason For Exam: critical care [facility] Condition: Stable Pertinent studies: CXRs Hospital course: Discharge diagnosis and Mx: /STEMI - ST elevation on lead 1 and aVL -monitored with serial CE and EKG -as needed SL NTG and pain control -Cardiology consulted and s/p cardiac cath x2 with PCI in multiple stents -tte reviewed - EF 35-40%, impaired relaxation. -Cont ASA, brilinta, statin, lopressor, losartan. D/c heparin and nitro gtts. - possible Anticipate d/c in AM. /s/p cardiac arrest, cardiology following - due to CAD and stemi, s/p PCI - cont to monitor, cardiology following, follow 2d echo /Acute systolic CHFrEF 35-40% - monitor ins/os, urine output, cardiology following / Obesity -BMI 36.6 -Recommended Balanced diet /Hypertension -s/p NTG drip, cont home meds and adjust medications -Monitor BP q shift /Hyponatremia -mild, Na on admission 131 -Slowly correct Na with IVF -Continue to monitor replete prn /Hypokalemia -Mild , -Potassium on admission 3.4 -Likely secondary to vomiting -Follow-up on repeat potassium labs -Continue to monitor /DM -POC BG monitoring -SSI coverage prn /hypothyroidism, cont synthroid / DVT prophylaxis -SCD to bilateral lower extremities while in bed - s/p therapeutic anticoagulation as per cardiology team. Disposition: DC-30 STILL A PATIENT Time spent for discharge: 34 minutes Core Measure Documentation - Palliative Care Palliative Care/ Comfort Measures: Not Applicable - Core Measures Any of the following diagnoses?: none Exam - Constitutional Vitals: Temp Pulse Resp BP Pulse Ox 98.5 F 74 18 144/85 56 L 05/06/19 07:53 05/06/19 08:00 05/06/19 07:53 05/06/19 07:53 05/06/19 07:53 Plan Activity: advance as tolerated Weight Bearing Status: Weight Bear as Tolerated Diet: low fat, low salt Special Instructions: restrict fluid intake to (1.2 L), record daily weights, record daily BP diary Follow up with: SIM HOROWITZ MD [Staff Physician] - 7 Days [place] LEE AYOUB MD [Primary Care Provider] - 7 Days Forms: [facility] PCI D/C Instructions Prescriptions: AtorvaSTATin [Lipitor] 80 mg PO QHS #30 tablet Aspirin [Aspirin BABY CHEW TAB] 81 mg PO QDAY #30 tab.chew Ticagrelor [Brilinta] 90 mg PO BID #60 tablet Losartan [Cozaar] 50 mg PO QDAY #30 tablet Metoprolol [Lopressor TAB] 50 mg PO BID #60 tablet
[2019-05-06] MEDS ORDERED: traZODone 50 MG TAB PO SCH (11:00)
[2019-05-06] MEDS ORDERED: DICLOFENAC SODIUM 1% TOPICAL GEL 100 GM TP PRN (11:00)
--- NOTE | 2019-05-06 11:18 | Progress Note ---
Assessment and Plan Currently stable cardiac status. Pt may discharge from cardiology standpoint on present cardiac regimen. Follow up in our [place] office with Dr. Hsu on 05/13/2019 @ 1:30PM. The patient has been seen in conjunction with Dr. Nat Roque who agrees with the assessment and plan of care. - Patient Problems (1) STEMI (ST elevation myocardial infarction) Current Visit: Yes Status: Acute (2) CAD (coronary artery disease) Current Visit: Yes Status: Chronic (3) Stented coronary artery Current Visit: Yes Status: Chronic (4) Cardiomyopathy Current Visit: Yes Status: Chronic (5) HTN (hypertension) Current Visit: Yes Status: Chronic (6) Diabetes Current Visit: Yes Status: Chronic (7) Tobacco use Current Visit: Yes Status: Chronic Subjective Date of service: 05/06/19 Principal diagnosis: STEMI Interval history: pt resting in bed, no current complaints. in SR on tele. brother at bedside. Objective Last Vital Signs Temp 98.5 F 05/06/19 07:53 Pulse 74 05/06/19 08:00 Resp 18 05/06/19 07:53 BP 154/85 05/06/19 07:53 Pulse Ox 56 L 05/06/19 07:53 - Physical Examination General: No Apparent Distress HEENT: Positive: PERRL Neck: Positive: neck supple, trachea midline Cardiac: Positive: Reg Rate and Rhythm, S1/S2 Lungs: Positive: Decreased Breath Sounds Neuro: Positive: Grossly Intact Abdomen: Negative: Tender Incision: Cardiac Cath Site (RRA c/d/i, no bleeding or hematoma) Extremities: Absent: edema - Labs and Meds Cardiac Enzymes 05/06/19 Range/Units 05:05 CK-MB (CK-2) 8.2 H (0.0-4.0) ng/mL CBC 05/06/19 Range/Units 05:05 WBC 11.4 H (4.5-11.0) K/mm3 RBC 4.31 (3.65-5.03) M/mm3 Hgb 13.6 (10.1-14.3) gm/dl Hct 40.6 (30.3-42.9) % Plt Count 186 (140-440) K/mm3 Lymph # 3.0 (1.2-5.4) K/mm3 [place] # 1.3 H (0.0-0.8) K/mm3 Eos # 0.2 (0.0-0.4) K/mm3 Baso # 0.1 (0.0-0.1) K/mm3 Comprehensive Metabolic Panel 05/06/19 Range/Units 05:05 Sodium 139 (137-145) mmol/L Potassium 3.8 (3.6-5.0) mmol/L Chloride 103.2 (98-107) mmol/L Carbon Dioxide 23 (22-30) mmol/L BUN 5 L (7-17) mg/dL Creatinine 0.6 L (0.7-1.2) mg/dL Glucose 115 H (65-100) mg/dL Calcium 8.9 (8.4-10.2) mg/dL - Imaging and Cardiology EKG: report reviewed, image reviewed Echo: report reviewed ( EF 35-40%, impaired relaxation. ) Cardiac cath: report reviewed - Telemetry EKG Rhythm: Sinus Rhythm
[2019-05-06] MEDS ORDERED: LOSARTAN 25 MG TAB PO SCH (11:30)
[2019-05-06] MEDS: traMADol 50 MG TAB PO PRN (11:31)
[2019-05-06] MEDS: METOCLOPRAMIDE 10 MG/2 ML INJ IV PRN (11:32)
[2019-05-07] MEDS ORDERED: LEVOTHYROXINE 125 MCG TAB PO SCH (06:00)
[2019-05-07] MEDS ORDERED: LOSARTAN 50 MG TAB PO SCH (10:00)
[2019-05-07] MEDS ORDERED: PANTOPRAZOLE 20 MG TAB PO SCH (10:00)
== END 2019-05-06 12:29 | disposition home or self-care (01) | DRG 246 ==
LOC: ED 17:09 → CC1 19:05 → 4A 05-05 22:35
PROVIDERS: ADMIT Internal Medicine; ATTEND Internal Medicine
PROC: 027034Z Dilation of Coronary Artery, One Artery with Drug-eluting Intraluminal Device, Percutaneous Approach (ICD-10-PCS; 2019-05-03)
PROC: 5A12012 Performance of Cardiac Output, Single, Manual (ICD-10-PCS; 2019-05-03)
PROC: 4A023N7 Measurement of Cardiac Sampling and Pressure, Left Heart, Percutaneous Approach (ICD-10-PCS; 2019-05-03)
PROC: B2111ZZ Fluoroscopy of Multiple Coronary Arteries using Low Osmolar Contrast (ICD-10-PCS; 2019-05-03)
PROC: B2151ZZ Fluoroscopy of Left Heart using Low Osmolar Contrast (ICD-10-PCS; 2019-05-03)
PROC: 02703GZ Dilation of Coronary Artery, One Artery with Four or More Intraluminal Devices, Percutaneous Approach (ICD-10-PCS; principal; 2019-05-05)
PROC: 4A023N7 Measurement of Cardiac Sampling and Pressure, Left Heart, Percutaneous Approach (ICD-10-PCS; 2019-05-05)
PROC: B2111ZZ Fluoroscopy of Multiple Coronary Arteries using Low Osmolar Contrast (ICD-10-PCS; 2019-05-05)
PROC: B2151ZZ Fluoroscopy of Left Heart using Low Osmolar Contrast (ICD-10-PCS; 2019-05-05)
PROC: B240ZZ3 Ultrasonography of Single Coronary Artery, Intravascular (ICD-10-PCS; 2019-05-05)
DX: I21.4 Non-ST elevation (NSTEMI) myocardial infarction (principal); I50.21 Acute systolic (congestive) heart failure; I46.9 Cardiac arrest, cause unspecified; E87.1 Hypo-osmolality and hyponatremia; I42.9 Cardiomyopathy, unspecified; E87.6 Hypokalemia; E11.9 Type 2 diabetes mellitus without complications; I11.0 Hypertensive heart disease with heart failure; K21.9 Gastro-esophageal reflux disease without esophagitis; E03.9 Hypothyroidism, unspecified; E66.9 Obesity, unspecified; I25.10 Atherosclerotic heart disease of native coronary artery without angina pectoris; Z83.3 Family history of diabetes mellitus; Z82.49 Family history of ischemic heart disease and other diseases of the circulatory system; Z90.710 Acquired absence of both cervix and uterus; Z68.36 Body mass index [BMI] 36.0-36.9, adult; Z71.3 Dietary counseling and surveillance; F17.210 Nicotine dependence, cigarettes, uncomplicated
CPT/HCPCS: 36415; 71045; 80048; 80061; 80076; 80307; 81001; 82550; 82553; 82962; 83690; 83735; 84484; 85014; 85018; 85025; 85347; 85520; 85610; 85730; 92928; 92941; 93005; 93010; 93306; 93458; 94760; G0378; A9270-GY; C1725; C1753; C1769; C1874; C1887; C1894; C9600; C9606; J1170; J1644; J2250; J2270; J2405; J2765; J3010; J7030; J7040; Q9967